=== PATIENT | female | born 1970 | race Caucasian/White ===

== ENCOUNTER 2019-10-30 09:54 | Emergency (ER) | payer SELFPAY ==
[2019-10-30 10:05] VITALS: BP 107/87; PULSE 91; RESP 18; TEMP 36.7; O2SAT 97; BMI 22.1
--- NOTE | 2019-10-30 10:11 | W.ED.ABDPA2 ---
HPI - Abdominal Pain General: Chief Complaint: Abdominal Pain Stated Complaint: ABD PAIN Time Seen by Provider: 10/30/19 10:10 Source: patient Mode of arrival: ambulatory Limitations: no limitations History of Present Illness: HPI narrative: Patient is a very nice 49-year-old female who presents to ED today with complaints of upper abdominal pain. Patient states pain is been present over the past 5 to 6 days. Patient states she was seen at [facility] ED recently and diagnosed with probable pancreatitis . She states at the time they wanted to perform a CT scan but patient refused. Patient was seen by her PCP yesterday who recommended she come to our ED for evaluation however she thought she could continue to monitor the pain at home. Patient reports daily alcohol use (approximately 8 beers a day). Denies drug use. She has not had any vomiting or changes in bowel movements. No urinary symptoms. No fevers. MD elicited complaint: abdominal pain Onset (ago): day(s) Pain Consistency: constant Location: LUQ and RUQ Severity: moderate Quality: sharp Radiation: none Migration to: no migration Associated Symptoms: Denies change in stool character, chills, coffee ground emesis, constipation, diarrhea, dysuria, fever(s), hematochezia, hematemesis, melena, nausea, syncope and vomiting Review of Systems Const: Denies: fever(s), chills, fatigue or malaise Card: Denies: chest pain, palpitations, irregular heart rhythm, edema, lightheadedness, syncope, pre-syncope or orthopnea Resp: Denies: dyspnea (chronic/COPD; no worsening) GI: Reports: abdominal pain; Denies: nausea, vomiting, hematemesis, coffee ground emesis, diarrhea, constipation, rectal swelling, change in stool character, hematochezia, melena, white/light colored stool or steatorrhea : Denies: flank pain, difficulty voiding, dysuria, urinary frequency or urinary urgency Musc: Denies: neck pain or back pain Skin/Breast: Denies: rash Neuro: Denies: headache(s), numbness in extremities, weakness in extremities or sensory changes PFS ED PFSH: Medical History (Updated 10/30/19 @ 12:20 by VICK Celis) Abdominal pain Alcohol abuse, daily use Social History (Updated 10/29/19 @ 16:02 by Dariana Cui CMA) Smoking and tobacco status: current every day smoker cigarettes Packs smoked per day: 1.5 Alcohol intake: current Alcohol intake frequency: few times a month History of recent travel: No Physical Exam Const: COMMON NORMALS: no acute distress, average body habitus, patient oriented x3, no limitations, healthy appearing, alert and well nourished Chest: COMMONS NORMALS: normal inspection of the chest and normal palpation of entire chest wall Resp: COMMON NORMALS: normal respiratory effort and clear to auscultation bilaterally AUSCULTATION: clear to auscultation bilaterally Cardio: COMMON NORMALS: regular rate and regular rhythm RATE: regular rate RHYTHM: regular rhythm GI: COMMON NORMALS: Normal to inspection, nondistended, normoactive bowel sounds present, Soft to palpation, No hepatosplenomegaly present and no masses PALPATION: Yes Soft to palpation, Yes Tenderness to palpation present (GI) Details: RUQ and Yes No hepatosplenomegaly present : COMMON NORMALS: Yes no CVA tenderness BLADDER/KIDNEY EXAM: Yes no CVA tenderness Back/Pelvis: COMMON NORMALS: no CVA tenderness Extremity: COMMON NORMALS: normal to inspection GENERAL: Yes normal exam except as noted Neuro: COMMON NORMALS: patient oriented x3 SENSORIUM/ORIENTATION: Yes alert Skin: COMMON NORMALS: no rashes or lesions noted GENERAL SKIN EXAM: no rashes or lesions noted Course Vital Signs: Vital signs: Vital Signs Temperature 98.0 F 10/30/19 10:05 Pulse Rate 84 10/30/19 12:47 Respiratory Rate 16 10/30/19 12:47 Blood Pressure 144/85 10/30/19 12:47 Pulse Oximetry 93 10/30/19 12:47 MDM - Abdominal Pain MDM Narrative: Medical decision making narrative: Patient's vitals are completely stable. On her labs her LFTs and lipase are normal. Her CT scan shows a fatty liver. Gallbladder ultrasound shows cholesterol polyps or sludge balls. She has no gallbladder wall thickening, andrei-cholecystic fluid, or gallbladder wall thickening to suggest cholecystitis. Patient will follow-up with general surgery for further evaluation and possible elective cholecystectomy. Return to ED precautions given. She feels better in our ED with pain and nausea medications. Lab Data: Labs: Lab Results 10/30/19 10/30/19 10/30/19 Range/Units 10:31 10:31 10:31 WBC 5.8 (4.0-10.0) 10^3/ uL RBC 5.52 H (4.1-5.3) 10^6/u L Hgb 17.2 H (11.5-15.3) g/dL Hct 52.2 H (37.0-47.0) % MCV 94.6 (81-99) fL MCH 31.2 (28.0-34.0) pg MCHC 33.0 (30.0-36.0) g/dL RDW 12.6 (12.1-15.1) % Plt Count 208 (130-400) 10^3/c mm MPV 11.2 H (7.4-10.4) fL Neut % (Auto) 62.5 % Lymph % (Auto) 27.8 % Dyer % (Auto) 8.3 % Eos % (Auto) 0.9 % Baso % (Auto) 0.3 % Neut # (Auto) 3.6 (1.8-7.7) 10^3/u L Lymph # (Auto) 1.6 (0.8-4.8) 10^3/u L Dyer # (Auto) 0.5 (0.2-0.9) 10^3/u L Eos # (Auto) 0.1 (0.0-0.8) 10^3/u L Baso # (Auto) 0.0 (0.0-0.1) 10^3/u L Nucleated RBC % (a uto) 0 % Nucleated RBCs # 0.0 /100WBC Sodium 140 (136-145) mmol/L Potassium 4.1 (3.5-5.1) mmol/L Chloride 103 (98-107) mmol/L Carbon Dioxide 26 (22-29) mmol/L Anion Gap 15.1 (5-19) BUN 8 (6-20) mg/dL Creatinine 0.6 (0.5-0.9) mg/dL GFR Calculation 105.4 (90-130) mL/min Glucose 91 (65-115) mg/dL Calculated Osmolal ity 285 (285-295) mOsm/k g Calcium 9.5 (8.5-10.5) mg/dL Total Bilirubin 0.3 (0.15-1.2) mg/dL AST 29 (0-32) U/L ALT 42 H (0-33) U/L Alkaline Phosphata se 82 (35-105) IU/L Total Protein 7.1 (6.6-8.7) g/dL Albumin 4.7 (3.5-5.2) g/dL Globulin 2.4 (1.3-4.6) g/dL Lipase 46 (13-60) U/L HCG, Qual Negative (Negative) Urine Color (Yellow) Urine Appearance (CLEAR) Urine pH (5-7) Ur Specific Gravit y (1.005-1.030) Urine Protein (Negative) Urine Glucose (UA) (Normal) Urine Ketones (Negative) Urine Blood (Negative) Urine Nitrate (Negative) Urine Bilirubin (NEGATIVE) Urine Urobilinogen (Negative) mg/dL Ur Leukocyte Brittany ase (Negative) 10/30/19 Range/Units 10:40 WBC (4.0-10.0) 10^3/ uL RBC (4.1-5.3) 10^6/u L Hgb (11.5-15.3) g/dL Hct (37.0-47.0) % MCV (81-99) fL MCH (28.0-34.0) pg MCHC (30.0-36.0) g/dL RDW (12.1-15.1) % Plt Count (130-400) 10^3/c mm MPV (7.4-10.4) fL Neut % (Auto) % Lymph % (Auto) % Dyer % (Auto) % Eos % (Auto) % Baso % (Auto) % Neut # (Auto) (1.8-7.7) 10^3/u L Lymph # (Auto) (0.8-4.8) 10^3/u L Dyer # (Auto) (0.2-0.9) 10^3/u L Eos # (Auto) (0.0-0.8) 10^3/u L Baso # (Auto) (0.0-0.1) 10^3/u L Nucleated RBC % (a uto) % Nucleated RBCs # /100WBC Sodium (136-145) mmol/L Potassium (3.5-5.1) mmol/L Chloride (98-107) mmol/L Carbon Dioxide (22-29) mmol/L Anion Gap (5-19) BUN (6-20) mg/dL Creatinine (0.5-0.9) mg/dL GFR Calculation (90-130) mL/min Glucose (65-115) mg/dL Calculated Osmolal ity (285-295) mOsm/k g Calcium (8.5-10.5) mg/dL Total Bilirubin (0.15-1.2) mg/dL AST (0-32) U/L ALT (0-33) U/L Alkaline Phosphata se (35-105) IU/L Total Protein (6.6-8.7) g/dL Albumin (3.5-5.2) g/dL Globulin (1.3-4.6) g/dL Lipase (13-60) U/L HCG, Qual (Negative) Urine Color Straw (Yellow) Urine Appearance Clear (CLEAR) Urine pH 7.0 (5-7) Ur Specific Gravit y 1.000 L (1.005-1.030) Urine Protein Neg (Negative) Urine Glucose (UA) Norm (Normal) Urine Ketones Negative (Negative) Urine Blood Neg (Negative) Urine Nitrate Negative (Negative) Urine Bilirubin Neg (NEGATIVE) Urine Urobilinogen Norm (Negative) mg/dL Ur Leukocyte Brittany ase Negative (Negative) Imaging Data ^: CT Abd/Pel: Radiologist's impression: [place] [address] CT Scan Report Signed Patient: Monica Shook Unit #: [id number] : 1970 Age/Sex: 49 / F ADM Date: 10/30/19 Loc: ER Room/Bed: Attending Dr: Ordering Provider/Ordering MD: Annamaria Patino Date of Service: 10/30/19 Procedure(s): CT abdomen pelvis w con* [id number] Accession Number(s): [id number] Report Number: [id number] WS: [id number] CT ABDOMEN PELVIS TECHNIQUE: Contrast-enhanced CT of the abdomen and pelvis with coronal and sagittal reformatted images. CLINICAL INFORMATION: upper abdominal pain COMPARISON: None. DLP: 484.[address] scans at [facility] use at least one of these dose optimization techniques: automated exposure control; mA and/or kV adjustment per patient size (includes targeted exams where dose is matched to clinical indication); or iterative reconstruction. FINDINGS: Mild diffuse fatty infiltration of the liver. Mild gallbladder wall enhancement with gallbladder polyps or cholesterolosis. See ultrasound. Normal portal vein and splenic vein. Normal spleen. Adrenal glands are normal. Normal renal parenchymal enhancement. No hydronephrosis. Normal GE junction. Normal caliber abdominal aorta. Aortic calcification. Sigmoid diverticulosis. No evidence of acute diverticulitis. No evidence of small or large bowel obstruction. No free fluid in the pelvis. Pelvic phleboliths. Pancreas appears normal. Lung bases are well aerated. CT/CT abdomen pelvis w con* [id number] IMPRESSION: 1. Mild diffuse fatty infiltration of the liver. 2. Mild gallbladder wall enhancement with suspected small gallbladder polyps/cholesterolosis. See ultrasound. 3. Normal renal parenchymal enhancement. No hydronephrosis. 4. Aortic calcification. No aneurysm. 5. Sigmoid diverticulosis. No evidence of acute diverticulitis. Dictated By: Efrem Andrade MD Signed By: Efrem Andrade MD Signed Date/Time: 10/30/19 1145 DD/ 1136 US gallbladder : Radiologist's impression: [address] [place] [address] Ultrasound Report Signed Patient: Monica Shook Unit #: [id number] : 1970 Age/Sex: 49 / F ADM Date: 10/30/19 Loc: ER Room/Bed: Attending Dr: Ordering Provider/Ordering MD: Annamaria Patino Date of Service: 10/30/19 Procedure(s): US gall bladder [id number] Accession Number(s): [id number] Report Number: [id number] WS: [id number] ULTRASOUND ABDOMEN LIMITED CLINICAL INFORMATION: RUQ pain COMPARISON: None. FINDINGS: Liver Size: Normal. Craniocaudal length: 13.4 cm. Echogenicity: Normal. Surface nodularity: None. Mass (size and location): None. Bile ducts Intrahepatic ducts: Normal. Common bile duct diameter: 0.3 cm. Gallbladder Nonshadowing small gallbladder wall polyps or sludge balls. Small amount of dependent sludge.. No shadowing calculi. No gallbladder wall thickening. Normal gallbladder wall 3 mm Pancreas Normal as visualized. Right kidney: Normal. Hydronephrosis: None. Size: 9.4 cm x 5.9 cm x 3.9 cm. Abdominal aorta and IVC Visualized portions are normal. Ascites: None. US/US gall bladder [id number] IMPRESSION: 1. Nonshadowing cholesterol polyps or sludge balls. No gallbladder wall thickening or pericholecystic fluid. No shadowing calculi. 2. Normal common bile duct. 3. Normal liver. 4. No hydronephrosis in right kidney. Dictated By: Efrem Andrade MD Signed By: Efrem Andrade MD Signed Date/Time: 10/30/19 1159 DD/ 1156 Discharge Plan Discharge Patient Disposition: Home, Self-Care Clinical Impression: Biliary colic Condition: Stable Prescriptions: New hydrocodone-acetaminophen 5-325 mg tablet 1 tab PO Q6H PRN (Reason: pain) Qty: 20 RF: 0 Zofran 4 mg tablet 4 mg PO Q6H PRN (Reason: nausea and vomiting) Qty: 14 RF: 0 Discharge Orders: Discharge Order (Routine); Ordered 10/30/19 Ordered By: Annamaria Patino Referrals: Messi Patel FNP [Primary Care Provider] - Patient Instructions: Abdominal Pain (ED) Activity Restrictions/Additional Instructions: As discussed case management should contact you to set you up with a general surgery consult. Please return to the emergency department for worsening pain, continued episodes of vomiting, fevers greater than 100.4, or any other concerns you may have. Discharge Date/Time: 10/30/19 12:49 Coding Level of Care Code ED Veterinary Poultry Inspector for Hugo Segal
--- NOTE | 2019-10-30 10:21 | CT_ITS ---
WS: [id number] CT ABDOMEN PELVIS TECHNIQUE: Contrast-enhanced CT of the abdomen and pelvis with coronal and sagittal reformatted image s. CLINICAL INFORMATION: upper abdominal pain COMPARISON: None. DLP: 484.[address] scans at [facility] use at least one of these dose optimization techniques: automat ed exposure control; mA and/or kV adjustment per patient size (includes targeted exams where dose is matched to clinical indication); or iterative reconstruction. FINDINGS: Mild diffuse fatty infiltration of the liver. Mild gallbladder wall enhancement with gallbladder poly ps or cholesterolosis. See ultrasound. Normal portal vein and splenic vein. Normal spleen. Adrenal glands are normal. Normal renal parenchym al enhancement. No hydronephrosis. Normal GE junction. Normal caliber abdominal aorta. Aortic calcifi cation. Sigmoid diverticulosis. No evidence of acute diverticulitis. No evidence of small or large bowel obst ruction. No free fluid in the pelvis. Pelvic phleboliths. Pancreas appears normal. Lung bases are well aerated. CT/CT abdomen pelvis w con* [id number] IMPRESSION: 1. Mild diffuse fatty infiltration of the liver. 2. Mild gallbladder wall enhancement with suspected small gallbladder polyps/c holesterolosis. See ultrasound. 3. Normal renal parenchymal enhancement. No hydronephrosis. 4. Aortic calcification. No aneurysm. 5. Sigmoid diverticulosis. No evidence of acute diverticulitis.
--- NOTE | 2019-10-30 10:21 | US_ITS ---
WS: [id number] ULTRASOUND ABDOMEN LIMITED CLINICAL INFORMATION: RUQ pain COMPARISON: None. FINDINGS: Liver Size: Normal. Craniocaudal length: 13.4 cm. Echogenicity: Normal. Surface nodularity: None. Mass (size and location): None. Bile ducts Intrahepatic ducts: Normal. Common bile duct diameter: 0.3 cm. Gallbladder Nonshadowing small gallbladder wall polyps or sludge balls. Small amount of dependent sludge.. No sha dowing calculi. No gallbladder wall thickening. Normal gallbladder wall 3 mm Pancreas Normal as visualized. Right kidney: Normal. Hydronephrosis: None. Size: 9.4 cm x 5.9 cm x 3.9 cm. Abdominal aorta and IVC Visualized portions are normal. Ascites: None. US/US gall bladder [id number] IMPRESSION: 1. Nonshadowing cholesterol polyps or sludge balls. No gallbladder wall thicke glen or pericholecystic fluid. No shadowing calculi. 2. Normal common bile duct. 3. Normal liver. 4. No hydronephrosis in right kidney.
[2019-10-30 10:47] LABS: Basophils % 0.3 %; Eosinophils # 0.1 10^3/uL (0.0-0.8); Eosinophils % 0.9 %; Hematocrit 52.2 % (37.0-47.0); Hemoglobin 17.2 g/dL (11.5-15.3); Lymphocytes # 1.6 10^3/uL (0.8-4.8); Lymphocytes % 27.8 %; Mean Corpuscular Hemoglobin 31.2 pg (28.0-34.0); Mean Corpuscular Volume 94.6 fL (81-99); Mean Platelet Volume 11.2 fL (7.4-10.4); Monocytes # 0.5 10^3/uL (0.2-0.9); Monocytes % 8.3 %; Neutrophils # 3.6 10^3/uL (1.8-7.7); Neutrophils % 62.5 %; Nucleated Red Blood Cells % 0 %; Platelet Count 208 10^3/cmm (130-400); Red Blood Count 5.52 10^6/uL (4.1-5.3); Red Cell Distribution Width 12.6 % (12.1-15.1); White Blood Count 5.8 10^3/uL (4.0-10.0)
[2019-10-30] MEDS: ondansetron 2 mg/ML SDV 2 mL 4 MG IVP (10:48)
[2019-10-30] MEDS: morphine 4 mg/mL SDV 1 mL IVP (10:48)
[2019-10-30 10:55] LABS: HCG, Serum Qual Negative (Negative)
[2019-10-30 11:00] VITALS: O2SAT 98
[2019-10-30 11:01] LABS: Alanine Aminotransferase 42 U/L (0-33); Albumin Level 4.7 g/dL (3.5-5.2); Alkaline Phosphatase 82 IU/L (35-105); Anion Gap 15.1 (5-19); Aspartate Amino Transferase 29 U/L (0-32); Blood Urea Nitrogen 8 mg/dL (6-20); Calcium 9.5 mg/dL (8.5-10.5); Carbon Dioxide 26 mmol/L (22-29); Chloride 103 mmol/L (98-107); Globulin 2.4 g/dL (1.3-4.6); Glomerular Filtration Rate 105.4 mL/min (90-130); Glucose 91 mg/dL (65-115); Lipase 46 U/L (13-60); Osmolality Calculated 285 mOsm/kg (285-295); Potassium 4.1 mmol/L (3.5-5.1); Sodium 140 mmol/L (136-145); Total Bilirubin 0.3 mg/dL (0.15-1.2); Total Protein 7.1 g/dL (6.6-8.7)
[2019-10-30] MEDS: iohexol 300 mg/mL 100 mL Btl IV (11:28)
[2019-10-30 11:33] LABS: Add Urine Microscopic? NO
[2019-10-30 11:38] LABS: Bilirubin Urine Neg (NEGATIVE); Blood Urine Neg (Negative); Glucose Urine UA Norm (Normal); Ketones Urine Negative (Negative); Leukocyte Esterase Urine Negative (Negative); Nitrate Urine Negative (Negative); Protein Urine Neg (Negative); Urine Appearance Clear (CLEAR); Urine Color Straw (Yellow); Urobilinogen Urine Norm (Negative)
[2019-10-30 12:14] VITALS: BP 149/83; PULSE 91; O2SAT 97
[2019-10-30 12:47] VITALS: BP 144/85; PULSE 84; RESP 16; O2SAT 93
--- NOTE | 2019-10-30 14:27 | DCPLANNER ---
gaming manager was asked to schedule a follow up appointment for patient with general surgery. gaming manager called [facility], spoke with Etelvina. gaming manager gave clinic patients information, was told that it would be printed and reviewed. Clinic will call patient with appointment information.
--- NOTE | 2019-11-05 14:00 | DCPLANNER ---
Patient has a follow up appointment scheduled for Saturday, November 09, [address] at 9:[address] Turner. Clinic will call patient with appointment information.
--- NOTE | 2019-11-17 10:02 | DCPLANNER ---
Patient did attend appointment scheduled for 11.09.19 with [facility].
== END 2019-10-30 12:49 | disposition home or self-care (01) ==
PROVIDERS: Emergency Provider Physician Assistant; PCP Nurse Practitioner Family
DX: K80.50 Calculus of bile duct without cholangitis or cholecystitis without obstruction (principal); F17.210 Nicotine dependence, cigarettes, uncomplicated
CPT/HCPCS: 12345; 36415; 74177; 76705; 80053; 81003; 83690; 84703; 85025; 96374; 96375; 99283; A9270; J2270; J2405; Q9967

== ENCOUNTER 2019-11-17 05:48 | Emergency (ER) | payer SELFPAY ==
[2019-11-17 05:54] VITALS: BP 143/73; RESP 18; TEMP 36.3; O2SAT 98; BMI 22.1
--- NOTE | 2019-11-17 06:00 | XR_ITS ---
WS: [id number] ABDOMEN 1 VIEW(S) HISTORY: abd constipation COMPARISON: None available. Mild increased fecal material throughout the colon. No obstruction. No suspicious calcifications or masses. No bone abnormality. XR/XR KUB [id number] IMPRESSION: Mild constipation.
--- NOTE | 2019-11-17 06:08 | ED_ITS ---
HPI - General Adult General: Chief complaint: General Medical Stated complaint: constipated/physician referral Time Seen by Provider: 11/17/19 06:00 History of Present Illness: HPI narrative: 49 yo female presents emergency room with constipation for last 2 days. She has colon polyps she was actually scheduled have a cholecystectomy this morning but because of abdominal cramping and pain in her constipation it was put off she did take some Ex-Lax yesterday but really did not have much of a result. She has been taking hydrocodone as needed for pain which seemed to precipitate it. She is not had any GI bleeding that she is noted. She denies any fever or upper respiratory illness no symptoms. She is not been exposed anyone is been ill recently. Associated symptoms: Reports nausea; Deny chest pain, dyspnea, malaise, rash or vomiting Review of Systems Const: Denies: fever(s), chills, body aches, change in appetite, fatigue or malaise ENMT: Denies: throat pain, ear or mastoid pain, nasal discharge or nasal congestion Card: Denies: chest pain, edema, dyspnea on exertion or orthopnea Resp: Denies: dyspnea, productive cough or non-productive cough GI: Reports: abdominal pain, nausea, constipation and bloating; Denies: vomiting, hematemesis, coffee ground emesis, diarrhea, hematochezia or melena : Denies: flank pain, difficulty voiding, dysuria, urinary frequency or urinary urgency Skin/Breast: Denies: rash or pruritus [facility] ED PFSH: Medical History Abdominal pain Alcohol abuse, daily use Pancreatitis Surgical History History of tubal ligation Family History Denies family history of Anesthesia complication Bleeding disorder Social History Smoking and tobacco status: current every day smoker cigarettes Packs smoked per day: 1.5 Alcohol intake: current Alcohol intake frequency: few times a month History of recent travel: No Physical Exam Const: COMMON NORMALS: no acute distress GENERAL APPEARANCE: cooperative and comfortable ORIENTATION/CONSCIOUSNESS: Yes awake, Yes oriented to person, Yes oriented to place and Yes oriented to time HENMT: COMMON NORMALS: normocephalic, atraumatic, hearing grossly normal bilaterally, external ears normal, EAC's normal, TM's normal bilaterally, Normal nasal mucous membranes and turbinates present, moist oral mucous membranes and oropharynx normal HEAD & SCALP: normocephalic and atraumatic NOSE: Normal nasal mucous membranes and turbinates present EXTERNAL EAR: Yes external ears normal EXTERNAL AUDITORY CANAL: EAC's normal TYMPANIC MEMBRANE: TM's normal bilaterally Eye: COMMON NORMALS: Equal, round and reactive pupils present, EOMs intact bilaterally, conjunctivae normal and no scleral icterus CONJUNCTIVA: Yes conjunctivae normal PUPIL: Yes Equal, round and reactive pupils present Neck/C-Spine: COMMON NORMALS: full ROM, no lymphadenopathy, supple and no JVD Lymph: LYMPHATIC: no lymphadenopathy noted and no lymphedema noted Resp: COMMON NORMALS: normal respiratory effort, No retractions, No use of accessory muscles and clear to auscultation bilaterally AUSCULTATION: clear to auscultation bilaterally Cardio: COMMON NORMALS: no JVD, regular rate, regular rhythm and No murmurs present (Cardio) RATE: regular rate RHYTHM: regular rhythm GI: COMMON NORMALS: Soft to palpation and No hepatosplenomegaly present AUSCULTATION: Yes normoactive bowel sounds PALPATION: Yes Soft to palpation, Yes Tenderness to palpation present (GI) Details: RUQ, No Guarding due to palpation present (GI) and Yes No hepatosplenomegaly present Extremity: COMMON NORMALS: normal to inspection, capillary refill normal, no clubbing, cyanosis or edema, no calf tenderness and no pedal edema Neuro: SENSORIUM/ORIENTATION: Yes oriented to person, Yes oriented to place and Yes oriented to time Skin: COMMON NORMALS: no rashes or lesions noted GENERAL SKIN EXAM: no rashes or lesions noted Course Vital Signs: Vital signs: Vital Signs Temperature 97.3 F L 11/17/19 05:54 Pulse Rate 88 11/17/19 08:43 Respiratory Rate 16 11/17/19 08:43 Blood Pressure 110/68 11/17/19 08:43 Pulse Oximetry 94 11/17/19 08:43 MDM - General Adult MDM Narrative: Medical decision making narrative: Good result from enema. Patient feels much better working to go ahead and discharge her home with Dr. Dr. Uribe she is to call his office and they will make arrangements hopefully to have her cholecystectomy rescheduled for tomorrow. Continue her other medications for now recommend that she stay on a clear liquid diet and n.p.o. after midnight. Lab Data: Labs: Lab Results 11/17/19 11/17/19 11/17/19 Range/Units 06:09 06:09 06:09 WBC 7.4 (4.0-10.0) 10^3/ uL RBC 5.55 H (4.1-5.3) 10^6/u L Hgb 17.1 H (11.5-15.3) g/dL Hct 51.3 H (37.0-47.0) % MCV 92.4 (81-99) fL MCH 30.8 (28.0-34.0) pg MCHC 33.3 (30.0-36.0) g/dL RDW 11.9 L (12.1-15.1) % Plt Count 231 (130-400) 10^3/c mm MPV 11.6 H (7.4-10.4) fL Neut % (Auto) 72.2 % Lymph % (Auto) 20.2 % Morrow % (Auto) 6.4 % Eos % (Auto) 0.7 % Baso % (Auto) 0.4 % Neut # (Auto) 5.3 (1.8-7.7) 10^3/u L Lymph # (Auto) 1.5 (0.8-4.8) 10^3/u L Morrow # (Auto) 0.5 (0.2-0.9) 10^3/u L Eos # (Auto) 0.1 (0.0-0.8) 10^3/u L Baso # (Auto) 0.0 (0.0-0.1) 10^3/u L Nucleated RBC % (a uto) 0 % Nucleated RBCs # 0.0 /100WBC Sodium 138 (136-145) mmol/L Potassium 4.0 (3.5-5.1) mmol/L Chloride 100 (98-107) mmol/L Carbon Dioxide 26 (22-29) mmol/L Anion Gap 16.0 (5-19) BUN 10 (6-20) mg/dL Creatinine 0.6 (0.5-0.9) mg/dL GFR Calculation 105.4 (90-130) mL/min Glucose 98 (65-115) mg/dL Calculated Osmolal ity 282 L (285-295) mOsm/k g Lactate 0.8 (0.5-2.2) mmol/L Calcium 10.5 (8.5-10.5) mg/dL Total Bilirubin 0.3 (0.15-1.2) mg/dL AST 18 (0-32) U/L ALT 18 (0-33) U/L Alkaline Phosphata se 83 (35-105) IU/L Total Protein 7.8 (6.6-8.7) g/dL Albumin 4.3 (3.5-5.2) g/dL Globulin 3.5 (1.3-4.6) g/dL Lipase 49 (13-60) U/L Urine Color (Yellow) Urine Appearance (CLEAR) Urine pH (5-7) Ur Specific Gravit y (1.005-1.030) Urine Protein (Negative) Urine Glucose (UA) (Normal) Urine Ketones (Negative) Urine Blood (Negative) Urine Nitrate (Negative) Urine Bilirubin (NEGATIVE) Urine Urobilinogen (Negative) mg/dL Ur Leukocyte Brittany ase (Negative) 11/17/19 Range/Units 07:08 WBC (4.0-10.0) 10^3/ uL RBC (4.1-5.3) 10^6/u L Hgb (11.5-15.3) g/dL Hct (37.0-47.0) % MCV (81-99) fL MCH (28.0-34.0) pg MCHC (30.0-36.0) g/dL RDW (12.1-15.1) % Plt Count (130-400) 10^3/c mm MPV (7.4-10.4) fL Neut % (Auto) % Lymph % (Auto) % Morrow % (Auto) % Eos % (Auto) % Baso % (Auto) % Neut # (Auto) (1.8-7.7) 10^3/u L Lymph # (Auto) (0.8-4.8) 10^3/u L Morrow # (Auto) (0.2-0.9) 10^3/u L Eos # (Auto) (0.0-0.8) 10^3/u L Baso # (Auto) (0.0-0.1) 10^3/u L Nucleated RBC % (a uto) % Nucleated RBCs # /100WBC Sodium (136-145) mmol/L Potassium (3.5-5.1) mmol/L Chloride (98-107) mmol/L Carbon Dioxide (22-29) mmol/L Anion Gap (5-19) BUN (6-20) mg/dL Creatinine (0.5-0.9) mg/dL GFR Calculation (90-130) mL/min Glucose (65-115) mg/dL Calculated Osmolal ity (285-295) mOsm/k g Lactate (0.5-2.2) mmol/L Calcium (8.5-10.5) mg/dL Total Bilirubin (0.15-1.2) mg/dL AST (0-32) U/L ALT (0-33) U/L Alkaline Phosphata se (35-105) IU/L Total Protein (6.6-8.7) g/dL Albumin (3.5-5.2) g/dL Globulin (1.3-4.6) g/dL Lipase (13-60) U/L Urine Color Yellow (Yellow) Urine Appearance Clear (CLEAR) Urine pH 7.0 (5-7) Ur Specific Gravit y 1.005 (1.005-1.030) Urine Protein Neg (Negative) Urine Glucose (UA) Norm (Normal) Urine Ketones Negative (Negative) Urine Blood Neg (Negative) Urine Nitrate Negative (Negative) Urine Bilirubin Neg (NEGATIVE) Urine Urobilinogen Norm (Negative) mg/dL Ur Leukocyte Brittany ase Negative (Negative) Discharge Plan Discharge Patient Disposition: Home, Self-Care Clinical Impression: Cholecystitis, Constipation Condition: Stable Prescriptions: No Action ondansetron HCl [Zofran] 4 mg tablet 4 mg PO Q6H PRN (Reason: nausea and vomiting) Qty: 14 RF: 0 dimenhydrinate [Dramamine] 50 mg Tablet 50 mg PO BID RF: 0 Discharge Orders: Discharge Order (Routine); Ordered 11/17/19 Ordered By: Asher Nair Referrals: Amanda,Messi, [employer] OPERATOR [Primary Care Provider] - Discharge Diet: Clear Liquid Discharge Activity: Increase activity as tolerated Activity Restrictions/Additional Instructions: Call Dr. Uribe office to reschedule your cholecystectomy tomorrow. I have notified them to your discharge. Clear liquid diet overnight. N.p.o. after midnight. If you have worsening problems return to the emergency room Discharge Date/Time: 11/17/19 08:44 Coding Level of Care Code ED Jinrikisha Driver for Hugo Fwd Exam Comprehensive
[2019-11-17 06:19] LABS: Basophils % 0.4 %; Eosinophils # 0.1 10^3/uL (0.0-0.8); Eosinophils % 0.7 %; Hematocrit 51.3 % (37.0-47.0); Hemoglobin 17.1 g/dL (11.5-15.3); Lymphocytes # 1.5 10^3/uL (0.8-4.8); Lymphocytes % 20.2 %; Mean Corpuscular HGB Conc 33.3 g/dL (30.0-36.0); Mean Corpuscular Hemoglobin 30.8 pg (28.0-34.0); Mean Corpuscular Volume 92.4 fL (81-99); Mean Platelet Volume 11.6 fL (7.4-10.4); Monocytes # 0.5 10^3/uL (0.2-0.9); Monocytes % 6.4 %; Neutrophils # 5.3 10^3/uL (1.8-7.7); Neutrophils % 72.2 %; Nucleated Red Blood Cells % 0 %; Platelet Count 231 10^3/cmm (130-400); Red Blood Count 5.55 10^6/uL (4.1-5.3); Red Cell Distribution Width 11.9 % (12.1-15.1); White Blood Count 7.4 10^3/uL (4.0-10.0)
[2019-11-17 06:32] LABS: Lactate (Lactic Acid level) 0.8 mmol/L (0.5-2.2)
[2019-11-17 06:33] LABS: Alanine Aminotransferase 18 U/L (0-33); Albumin Level 4.3 g/dL (3.5-5.2); Alkaline Phosphatase 83 IU/L (35-105); Aspartate Amino Transferase 18 U/L (0-32); Blood Urea Nitrogen 10 mg/dL (6-20); Calcium 10.5 mg/dL (8.5-10.5); Carbon Dioxide 26 mmol/L (22-29); Chloride 100 mmol/L (98-107); Globulin 3.5 g/dL (1.3-4.6); Glomerular Filtration Rate 105.4 mL/min (90-130); Glucose 98 mg/dL (65-115); Lipase 49 U/L (13-60); Osmolality Calculated 282 mOsm/kg (285-295); Sodium 138 mmol/L (136-145); Total Bilirubin 0.3 mg/dL (0.15-1.2); Total Protein 7.8 g/dL (6.6-8.7)
[2019-11-17] MEDS: ondansetron 2 mg/ML SDV 2 mL 4 MG IVP (06:35)
[2019-11-17] MEDS: morphine 4 mg/mL SDV 1 mL 6 MG IVP (06:35)
[2019-11-17] MEDS: sodium chloride 0.9% 1,000 ML 999 ML IV (06:36)
[2019-11-17 07:00] VITALS: RESP 17; O2SAT 96
[2019-11-17 07:42] LABS: Add Urine Microscopic? NO
[2019-11-17 07:44] LABS: Bilirubin Urine Neg (NEGATIVE); Blood Urine Neg (Negative); Glucose Urine UA Norm (Normal); Ketones Urine Negative (Negative); Leukocyte Esterase Urine Negative (Negative); Nitrate Urine Negative (Negative); Protein Urine Neg (Negative); Specific Gravity, Urine 1.005 (1.005-1.030); Urine Appearance Clear (CLEAR); Urine Color Yellow (Yellow); Urobilinogen Urine Norm (Negative)
[2019-11-17 08:06] VITALS: BP 115/63; PULSE 77; RESP 17; O2SAT 96
--- NOTE | 2019-11-17 08:18 | PC.NURSE ---
After pt had milk and molasses enema, pt had a large BM.
[2019-11-17 08:43] VITALS: BP 110/68; PULSE 88; RESP 16; O2SAT 94
== END 2019-11-17 08:44 | disposition home or self-care (01) ==
PROVIDERS: Emergency Provider Family Medicine; PCP Nurse Practitioner Family
DX: K59.00 Constipation, unspecified (principal); K81.9 Cholecystitis, unspecified; F17.210 Nicotine dependence, cigarettes, uncomplicated
CPT/HCPCS: 12345; 45915; 74018; 80053; 81003; 83605; 83690; 85025; 96360; 96361; 96374; 96375; 99283; J2270; J2405; J7030

== ENCOUNTER 2019-11-18 08:45 | Day surgery (SDC) | payer SELFPAY ==
[2019-11-17 13:18] VITALS: BMI 22.1
[2019-11-18] VITALS (11 sets, daily range): BP systolic 111–144; BP diastolic 56–89; PULSE 63–85; RESP 14–20; TEMP 36.3–36.7; O2SAT 96–99
[2019-11-18] MEDS: sodium chloride 0.9% 1,000 ML 30 ML IV (09:45)
--- NOTE | 2019-11-18 09:46 | ANES.PREANE2 ---
Pre-Anesthetic Assessment Pre-Anesthetic Assessment: Height/Weight: Height 1.6 m Weight 56.699 kg Preop Diagnosis: Symptomatic cholelithiasis Proposed Procedure: Operation Date: 11/18/19 09:45 Proposed Procedures p Laparoscopic Cholecystectomy 55548 R10.9(Not Applicable) - Cole Uribe MD Familial anesthetic complications: None Was Beta Douglas taken within 24 hours: N/A Last intake: Intake Last Liquid Date 11/17/19 Last Liquid Time 18:00 Last Solid Date 11/17/19 Last Solid Time 17:00 Social: Social History: Alcohol and Tobacco Comment: no drinking in the last month Exam: Pre-Anes Outpt Exam: alert, oriented x 3, clear to auscultation bilaterally and regular rate & rhythm Airway: Cervical ROM: WNL MP: 4 Dentition: False Pulmonary: Pulmonary: COPD CV/HEM: CV/HEM: None reported : : None reported Hepatic: Hepatic: None reported GI: GI: GERD Comments: currently having heartburn - will perform RSI Metabolic: Metabolic: None reported Musc/skel: Musc/skel: None reported Neuropsych: Neuropsych: None reported Anesthetic Plan: ASA status: 2 Anesthesia: General Risk of > 500 ml blood loss (7ml/kg in children): No Meds/Allergies Current Medications: Current Medications Generic Name Dose Route Start Last Admin Trade Name Freq PRN Reason Stop Dose Admin Sodium Chloride 1,000 mls @ 30 ml s/hr 11/18/19 09:30 11/18/19 09:45 Sodium Chloride 0.9% IV 11/19/19 09:29 30 mls/hr .Q24H SINDI Administration PFSH Anesthesia PFSH: Medical History (Updated 11/17/19 @ 08:34 by Asher Nair DO) Abdominal pain Alcohol abuse, daily use Pancreatitis Surgical History History of tubal ligation Family History Denies family history of Anesthesia complication Bleeding disorder Social History Smoking and tobacco status: current every day smoker cigarettes Packs smoked per day: 1.5 Alcohol intake: current Alcohol intake frequency: few times a month History of recent travel: No Data Anesthesia Cardiac Studies: No Data to Display
[2019-11-18] MEDS: midazolam 1 mg/mL INJ 2 mL 2 MG IVP (10:08)
--- NOTE | 2019-11-18 10:15 | SUR.PREOP ---
MEDICATED FOR ANXIETY PER Dr SILVA..O2 SAT95%
--- NOTE | 2019-11-18 10:21 | W.PM.OPSUD ---
Surgery/Procedure H&P Update DATE OF PROCEDURE: November 18, 2019 DATE H&P PERFORMED: 11/09/19 H&P UPDATE INFORMATION: I have reviewed H&P completed within last 30 days, I have examined patient prior to procedure and Changes to prior documentation as noted here CHANGES TO PREVIOUS DOCUMENTATION: Patient was supposed to get her elective laparoscopic cholecystectomy yesterday but she did have episode of constipation to go to the emergency department, responded very well to milk of molasses enema. And the patient was rescheduled for today PREOP DIAGNOSIS: Symptomatic cholelithiasis PRIMARY INDICATION FOR PROCEDURE: The same PLANNED PROCEDURE: Operation Date: 11/18/19 09:45 Proposed Procedures p Laparoscopic Cholecystectomy 37100 R10.9(Not Applicable) - Cole Uribe MD
[2019-11-18] MEDS: lidocaine 2% INJ 20 mL INJECTION (11:43)
--- NOTE | 2019-11-18 12:14 | PM.OP ---
Operative Report Date of procedure: November 18, 2019 Pre-op Diagnosis: Symptomatic cholelithiasis Post-op diagnosis: other (Chronic cholecystitis) Procedure Done: Laparoscopic cholecystectomy Specimens removed/disposition: Gallbladder and contents Surgeon: Cole Uribe Certified Fraud Examiner: Surgical cirilo Bryan Circulating nurses Saige and Diana Anesthesia: General (traffic observer Blaine) Estimated blood loss (mL): 5 Condition: stable Disposition: same day Brief History: This is a pleasant 49 years old female patient referred to my office because of gallbladder disease . plan of care; After thorough history physical examination and reviewing the chart ,I counseled the patient for laparoscopic cholecystectomy possible open, indications risks including but not limited injury to the common bile duct and other viscera.benefits and alternatives all discussed with the patient, and she did agree to proceed. All questions have been answered and all concerns have been addressed to patient's satisfaction. Rationale was carefully and clearly discussed with the patient.Appropriate informed consent have been reviewed and signed. Procedure: Patient was identified in the holding area and taken back to the operative suite, placed in supine position intubated by anesthesia . Time-out was done verifying the patient's name/date of /planned procedure and destination after the procedure, all were in agreement. SCDs confirmed to be functioning, preoperative antibiotics administered per protocol, and beta andrew protocol was confirmed. Patient was appropriately secured to the table, footboard was applied to the OR table, before prep and drape anesthesia was asked to tilt the table back and forth to make sure that the patient is appropriately secured and she was. Prep and drape of the abdomen was done under the usual sterile technique, followed by that infra umbilical skin transverse incision coinciding with previous scar,skin incision was done by a 11 blade knife, and stay sutures were applied to the fascia and León trocar technique was used to enter the abdominal without injuring any abdominal viscera, started by low flow gas insufflation followed by a high flow, started with a 10 mm laparoscope and under direct vision there was no evidence of any injuries, the scope then switched to a 30? ,10 millimeter scope and under direct visualization 5 millimeter trocar was inserted in the epigastric region followed by two 5 mm trocars were inserted in the right upper quadrant that was done after injection of local lidocaine 2% at all incision sites. Gallbladder showed chronic cholecystitis. Patient was noticed to have adhesions towards the right side of her abdomen including bowel loops yet it was away from the León trocar and the designated 5 mm trochars as well, and did not interfere with the field of surgery. Patient was then positioned in the head up and tilted to the left dissection started by taking adhesions down using [place] forceps with heat, continued dissection until I identified the critical view of the cystic duct and cystic artery were seen connected to the gallbladder. Clips were applied on the cystic duct towards the common bile duct 1 towards the gallbladder then divided is in sharp scissors, 2 clips were then applied onto the cystic artery and 1 towards the gallbladder and divided by sharp scissors. Was an additional traversing vessel that was clipped as Dissection was then carried along of the gallbladder from the gallbladder fossa using cautery as well as sharp dissection with heat energy. The gallbladder then was dissected out from the gallbladder fossa totally , cholecystectomy was then achieved and was placed in an Endo Catch bag and then retrieved from the León trocar site under direct visualization using a 5 mm 30? scope through the epigastric trocar, specimen was then passed to the circulating nurse to go for permanent pathology,irrigation and hemostasis was done to the gallbladder fossa after hemostasis was secured, final survey laparoscopy was done that showed no injuries. The infraumbilical fascial defect was then closed using interrupted Vicryl sutures using a fascial closure device ;Jose Luis Junior under direct visualization Gas was allowed to deflate,Trocars were then taken out under direct vision there was no evidence of bleeding Specimen was passed to the circulating nurse for permanent pathology. No drains were placed and the infra umbilical incision as well as all trocar sites were closed by by 4-0 Monocryl to approximate the skin edges of the infra umbilical incision, dressing was applied in the form of surgical glue and the patient patient got extubated and was taken to recovery area in a stable condition. Count of sponges, needles and instruments were completed at the end of the procedure I was present for the whole entire procedure.
--- NOTE | 2019-11-18 12:26 | SUR.OPER ---
bruise noted on below left side of peritoneal area. provider aware.
[2019-11-18] MEDS: fentaNYL 50 mcg/mL INJ 2mL IVP (12:43)
[2019-11-18] MEDS: HYDROcodone-acetaminophen 5-325 mg Tablet 1 TAB PO (13:29)
== END 2019-11-18 13:50 | disposition home or self-care (01) ==
PROVIDERS: PCP Nurse Practitioner Family; Visit Provider Surgery
PROC: 0FT44ZZ Resection of Gallbladder, Percutaneous Endoscopic Approach (ICD-10-PCS; CPT 47562; principal; 2019-11-18 09:45)
DX: K81.1 Chronic cholecystitis (principal); J44.9 Chronic obstructive pulmonary disease, unspecified; K21.9 Gastro-esophageal reflux disease without esophagitis; F17.210 Nicotine dependence, cigarettes, uncomplicated
CPT/HCPCS: 47562; 12345; 88304; 96374; J0131; J0690; J1100; J2001; J2250; J2405; J2704; J2710; J3010; J3490; J7030

== ENCOUNTER 2020-08-30 12:23 | Emergency (ER) | payer SELFPAY ==
[2020-08-30 12:29] VITALS: BP 153/74; PULSE 86; RESP 17; TEMP 36.8; O2SAT 94; BMI 25.3
--- NOTE | 2020-08-30 14:16 | XRR_ITS ---
PROCEDURE INFORMATION: Exam: XR Chest Exam date and time: 08/30/2020 2:17 PM Age: 50 years old Clinical indication: Shortness of breath; Additional info: SOB TECHNIQUE: Imaging protocol: XR of the chest Views: 1 view. COMPARISON: CR Chest 1 [place] [id number] 09/05/2015 8:33 PM FINDINGS: Lungs: Unremarkable. No consolidation. Pleural spaces: Unremarkable. No pleural effusion. No pneumothorax. Heart/Mediastinum: Unremarkable. No cardiomegaly. Bones/joints: Unremarkable. XR/XR chest 1V portable [id number] IMPRESSION: No acute findings.
[2020-08-30 14:33] VITALS: BP 161/93; PULSE 85; RESP 14; O2SAT 96
[2020-08-30 14:40] LABS: Basophils % 0.4 %; Eosinophils # 0.4 10^3/uL (0.0-0.8); Eosinophils % 3.9 %; Hematocrit 48.9 % (37.0-47.0); Lymphocytes # 3.9 10^3/uL (0.8-4.8); Lymphocytes % 40.2 %; Mean Corpuscular HGB Conc 32.7 g/dL (30.0-36.0); Mean Corpuscular Hemoglobin 29.6 pg (28.0-34.0); Mean Corpuscular Volume 90.4 fL (81-99); Monocytes # 0.5 10^3/uL (0.2-0.9); Monocytes % 5.1 %; Neutrophils # 4.83 10^3/uL (1.8-7.7); Neutrophils % 50.1 %; Nucleated Red Blood Cells % 0 %; Platelet Count 263 10^3/cmm (130-400); Red Blood Count 5.41 10^6/uL (4.1-5.3); Red Cell Distribution Width 13.1 % (12.1-15.1); White Blood Count 9.7 10^3/uL (4.0-10.0)
--- NOTE | 2020-08-30 14:49 | W.ED.GENADLT ---
HPI - General Adult General: Chief complaint: General Medical Stated complaint: POSS REACTION FROM VACC Time Seen by Provider: 08/30/20 13:59 Source: patient Mode of arrival: ambulatory Limitations: no limitations History of Present Illness: HPI narrative: 50-year-old female patient presents to the emergency department with multiple complaints. She reports since receiving Covid vaccine July 2020, has continued to experience joint pain that comes and goes. She reports pain to the left hand/thumb, skin tenderness to the chest and abdomen, back. She reports her cannot even touch her because her pain is so bad. She reports pain is sharp, will occur in different joints at different times. She reports will only last a couple seconds and then goes away then will reappear in another joint. She reports this is continued and has not changed since Covid vaccine, her 1st dose. She was prescribed prednisone for 5 days last week, was not effective with pain; she was prescribed naproxen yesterday, did not help. She states has tried [id number] Tylenol without improvement. She states was sent to the emergency department by her primary care for evaluation of inflammatory markers. Onset (ago): month(s) (1-2) Location: chest, back, abdomen, left and upper extremity Radiation: non-radiation Severity: moderate Quality: dull Pain Consistency: intermittent (when touched) Relieving factors: none Exacerbating factors: movement Associated symptoms: Reports dyspnea and short of breath; Deny chest pain, diaphoresis, headache(s), nausea, rash, palpitations or vomiting Treatments prior to arrival: NSAID Review of Systems General: Reports: 10 or more systems reviewed and unremarkable except in HPI and below Const: Denies: fever(s), chills or diaphoresis Eyes: Denies: blurry vision or eye redness ENMT: Denies: throat pain, dental pain or disequilibrium Card: Denies: chest pain, palpitations or irregular heart rhythm Resp: Reports: dyspnea GI: Denies: abdominal pain, nausea or vomiting : Denies: difficulty voiding or dysuria Musc: Reports: back pain (soft tissue) and joint pain (left thumb and left hand); Denies: neck pain Skin/Breast: Reports: skin tenderness ( all over ); Denies: rash, pruritus, erythema, skin swelling, changing lesions or changes in skin color Neuro: Denies: headache(s), weakness in extremities or behavioral changes Psych: Denies: anxiety or depression Christopher/Lymph: Denies: easy bruising PFSH ED PFSH: Medical History Abdominal pain Alcohol abuse, daily use Chronic obstructive pulmonary disease Pancreatitis Surgical History History of tubal ligation Family History Denies family history of Anesthesia complication Bleeding disorder Social History Smoking and tobacco status: current every day smoker cigarettes Packs smoked per day: 1.5 Alcohol intake: current Alcohol intake frequency: few times a month History of recent travel: No Female Reproductive History: Spontaneous abortions: No Physical Exam Const: COMMON NORMALS: no acute distress, patient oriented x3, healthy appearing and alert GENERAL APPEARANCE: cooperative, comfortable and well hydrated HENMT: COMMON NORMALS: normocephalic, Normal external nose present and moist oral mucous membranes HEAD & SCALP: normocephalic NOSE: Normal external nose present Eye: COMMON NORMALS: Equal, round and reactive pupils present and EOMs intact bilaterally GENERAL EYE: appearance normal, both eyes and all related structures PUPIL: Yes Equal, round and reactive pupils present Neck/C-Spine: COMMON NORMALS: full ROM and no lymphadenopathy GENERAL: Yes normal visual inspection and Yes trachea midline CERVICAL SPINE: Yes cervical ROM normal Lymph: LYMPHATIC: no lymphadenopathy noted Chest: COMMONS NORMALS: normal inspection of the chest and normal palpation of entire chest wall Resp: COMMON NORMALS: normal respiratory effort, No retractions, No use of accessory muscles and clear to auscultation bilaterally EFFORT & INSPECTION: Yes able to speak in complete sentences, No labored and No audible wheezes AUSCULTATION: clear to auscultation bilaterally and lung sounds not diminished Cardio: COMMON NORMALS: regular rate, regular rhythm, S1 normal heart sound present, S2 normal heart sound present and Peripheral pulses 2+ throughout RATE: regular rate RHYTHM: regular rhythm HEART SOUNDS: S1 normal heart sound present and S2 normal heart sound present PERIPHERAL PULSES: Peripheral pulses 2+ throughout GI: COMMON NORMALS: Normal to inspection, nondistended, normoactive bowel sounds present and Soft to palpation INSPECTION: Yes normal to inspection, No abdominal wall ecchymosis, No abdominal distension, Yes central obesity and No visible herniation AUSCULTATION: Yes normoactive bowel sounds PALPATION: Yes Soft to palpation and Yes Tenderness to palpation present (GI) (soft tissue tenderness present to the entire chest, abdomen and pelvis) : COMMON NORMALS: Yes no CVA tenderness BLADDER/KIDNEY EXAM: Yes no CVA tenderness Back/Pelvis: COMMON NORMALS: no CVA tenderness THORACIC SPINE/UPPER BACK: Yes thoracic ROM normal and Yes paraspinal muscle tenderness LUMBAR SPINE/LOWER BACK: Yes lumbar ROM normal, Yes paraspinal muscle tenderness, No bend over test abnormal and Yes other soft tissue findings Other lumbar soft tissue findings laterality: bilateral Extremity: COMMON NORMALS: normal to inspection, full ROM, capillary refill normal, no clubbing, cyanosis or edema and no pedal edema GENERAL: Yes normal exam except as noted OTHER: full active ROM present to all extremities, not able to produce tenderness to the digits of the hand, negative deformities or clicking/stiffness, nodules noted Neuro: ADRIANA COMA SCALE: document GCS findings [place] coma scale eye opening: Spontaneous Adriana coma scale verbal response: Orientated Adriana coma scale motor response: Obey commands Adriana coma scale total score: 15 COMMON NORMALS: patient oriented x3 and no focal motor deficits SENSORIUM/ORIENTATION: Yes alert SPEECH: speech normal GAIT: Yes Normal gait present MOTOR EXAM: 5/5 motor strength present throughout Psych: COMMON NORMALS: mental status grossly normal, Normal thought process present, cooperative, normal affect, speech normal and activity/motor behavior normal ACTIVITY/MOTOR BEHAVIOR: Yes appropriate eye contact SPEECH: Yes normal speech THOUGHT PROCESS: Normal thought process present Skin: COMMON NORMALS: no rashes or lesions noted, no wounds, turgor normal, no petechiae and no mottling GENERAL SKIN EXAM: no rashes or lesions noted, elasticity normal and turgor normal OTHER: Skin examined for rash, injection sites were Covid vaccine was administered without abnormality/ redness. Course ED course: 50-year-old female patient presents to the emergency department with myalgia complaints. She was advised to come to the ED at the recommendation of her primary care provider who noted need for inflammatory markers. She has continued to experience myalgia symptoms with joint pain after receiving COVID-19 vaccine in July 2020. She reports ibuprofen is more helpful than naproxen. States prednisone did not help pain. C-reactive protein slightly elevated 6.3, ESR 16, white blood count without leukocytosis, lipase 41, chemistry unremarkable. I discussed other etiologies such as rheumatoid arthritis, Lyme disease, she denies tick bite or need for further serology testing as she does not have insurance and is concerned about the cost. She agrees to follow-up with her primary care, is requesting ibuprofen upon exam, new prescription was provided she is advised to discontinue naproxen. I also advised she may contact [employer] engineer to note vaccine adverse reactions. Verbalized understanding and agrees to do so, she was advised to return the emergency department she develop new symptoms such as fever chills nausea vomiting or other concerning symptoms. Vital Signs: Vital signs: Vital Signs Temperature 98.2 F 08/30/20 12:29 Pulse Rate 81 08/30/20 16:19 Respiratory Rate 14 08/30/20 16:19 Blood Pressure 151/86 08/30/20 16:19 Pulse Oximetry 96 08/30/20 16:19 [facility] - General Adult Lab Data: Labs: Lab Results 08/30/20 08/30/20 08/30/20 Range/Units 14:30 14:30 14:30 WBC 9.7 (4.0-10.0) 10^3/ uL RBC 5.41 H (4.1-5.3) 10^6/u L Hgb 16.0 H (11.5-15.3) g/dL Hct 48.9 H (37.0-47.0) % MCV 90.4 (81-99) fL MCH 29.6 (28.0-34.0) pg MCHC 32.7 (30.0-36.0) g/dL RDW 13.1 (12.1-15.1) % Plt Count 263 (130-400) 10^3/c mm MPV 10.0 (7.4-10.4) fL Neut % (Auto) 50.1 % Lymph % (Auto) 40.2 % [place] % (Auto) 5.1 % Eos % (Auto) 3.9 % Baso % (Auto) 0.4 % Neut # (Auto) 4.83 (1.8-7.7) 10^3/u L Lymph # (Auto) 3.9 (0.8-4.8) 10^3/u L [place] # (Auto) 0.5 (0.2-0.9) 10^3/u L Eos # (Auto) 0.4 (0.0-0.8) 10^3/u L Baso # (Auto) 0.0 (0.0-0.1) 10^3/u L Nucleated RBC % (a uto) 0 % Nucleated RBCs # 0.0 /100WBC ESR 16 H (0-15) mm/hr Sodium 137 (136-145) mmol/L Potassium 4.2 (3.5-5.1) mmol/L Chloride 101 (98-107) mmol/L Carbon Dioxide 29 (22-29) mmol/L Anion Gap 11.2 (5-19) BUN 11 (6-20) mg/dL Creatinine 0.7 (0.5-0.9) mg/dL GFR Calculation 87.9 L (90-130) mL/min Glucose 86 (65-115) mg/dL Calculated Osmolal ity 283 L (285-295) mOsm/k g Calcium 9.3 (8.5-10.5) mg/dL Total Bilirubin 0.2 (0.15-1.2) mg/dL AST 16 (0-32) U/L ALT 18 (0-33) U/L Alkaline Phosphata se 106 H (35-105) IU/L C-Reactive Protein 6.3 H (0.0-4.9) mg/L Total Protein 7.2 (6.6-8.7) g/dL Albumin 4.0 (3.5-5.2) g/dL Globulin 3.2 (1.3-4.6) g/dL Lipase 41 (13-60) U/L Imaging Data^: CXR: Radiologist's impression: [facility] [address] [place] [facility] [place] [address] XRay Report Signed Patient: Monica Shook Unit #: [id number] : 1970 Age/Sex: 50 / F ADM Date: 08/30/20 Loc: ER Room/Bed: Attending Dr: Ordering Provider/Ordering MD: Aby Castelan Date of Service: 08/30/20 Procedure(s): XR chest 1V portable [id number] Accession Number(s): [id number] Report Number: [id number] PROCEDURE INFORMATION: Exam: XR Chest Exam date and time: 08/30/2020 2:17 PM Age: 50 years old Clinical indication: Shortness of breath; Additional info: SOB TECHNIQUE: Imaging protocol: XR of the chest Views: 1 view. COMPARISON: CR Chest 1 [place] [id number] 09/05/2015 8:33 PM FINDINGS: Lungs: Unremarkable. No consolidation. Pleural spaces: Unremarkable. No pleural effusion. No pneumothorax. Heart/Mediastinum: Unremarkable. No cardiomegaly. Bones/joints: Unremarkable. XR/XR chest 1V portable [id number] IMPRESSION: No acute findings. Dictated By: James Donaldson MD Signed By: James Donaldson MD Signed Date/Time: 08/30/201453 DD/ 51 Discharge Plan Discharge Patient Disposition: Home Clinical Impression: Myalgia Adverse reaction to vaccine Qualifiers: Encounter type: initial encounter Qualified Code(s): T50.Z95A - Adverse effect of other vaccines and biological substances, initial encounter Condition: Stable Prescriptions: New IBU 600 mg tablet 600 mg PO TID PRN (Reason: pain) Qty: 20 RF: 0 Discontinued naproxen 500 mg tablet 500 mg PO BID PRN (Reason: pain) Qty: 60 RF: 0 ibuprofen 100 mg Tablet 300 mg PO ONCE PRN (Reason: Pain) RF: 0 Discharge Orders: Discharge ED (Routine); Ordered 08/30/20 Ordered By: Aby Castelan Referrals: Messi Patel FNP [Primary Care Provider] - Discharge Diet: Usual diet Discharge Activity: Resume usual activity Patient Instructions: Adverse Drug Reaction (ED), Opioid Safety Activity Restrictions/Additional Instructions: Stop naproxen, start ibuprofen, 600 mg p.o. 3 times daily as needed for pain, take with food to avoid stomach upset May take Tylenol, 1 g 3 times daily as needed for pain continue follow-up with your primary care provider in the next 7 to 10 days if not improved Return to the emergency department if you develop nausea vomiting, diarrhea fever or chills or other concerning symptoms Coding Level of Care Code ED Abap Developer for Chg Fwd Exam Comprehensive
[2020-08-30 15:04] LABS: Alanine Aminotransferase 18 U/L (0-33); Alkaline Phosphatase 106 IU/L (35-105); Anion Gap 11.2 (5-19); Aspartate Amino Transferase 16 U/L (0-32); Blood Urea Nitrogen 11 mg/dL (6-20); C Reactive Protein 6.3 mg/L (0.0-4.9); Calcium 9.3 mg/dL (8.5-10.5); Carbon Dioxide 29 mmol/L (22-29); Chloride 101 mmol/L (98-107); Globulin 3.2 g/dL (1.3-4.6); Glomerular Filtration Rate 87.9 mL/min (90-130); Glucose 86 mg/dL (65-115); Lipase 41 U/L (13-60); Osmolality Calculated 283 mOsm/kg (285-295); Potassium 4.2 mmol/L (3.5-5.1); Sodium 137 mmol/L (136-145); Total Bilirubin 0.2 mg/dL (0.15-1.2); Total Protein 7.2 g/dL (6.6-8.7)
[2020-08-30 15:24] LABS: Erythrocyte Sedimentation Rate 16 mm/hr (0-15)
[2020-08-30] MEDS: acetaminophen 500 mg Tablet 1000 MG PO (15:40)
[2020-08-30] MEDS: ketorolac 30 mg/mL INJ IVP (15:40)
[2020-08-30 16:19] VITALS: BP 151/86; PULSE 81; RESP 14; O2SAT 96
== END 2020-08-30 16:20 | disposition home or self-care (01) ==
PROVIDERS: Emergency Provider Nurse Practitioner Family; PCP Nurse Practitioner Family
DX: M79.10 Myalgia, unspecified site (principal); T50.Z95A Adverse effect of other vaccines and biological substances, initial encounter; J44.9 Chronic obstructive pulmonary disease, unspecified; F17.210 Nicotine dependence, cigarettes, uncomplicated
CPT/HCPCS: 71045; 80053; 83690; 85025; 85651; 86140; 96374; 99283; J1885

== ENCOUNTER → 2020-11-02 11:46 | Outpatient (BNVA) | payer SELFPAY | PROVIDERS: PCP Nurse Practitioner Family; Visit Provider Emergency Medicine | DX: M25.541 Pain in joints of right hand (principal); M25.542 Pain in joints of left hand; J44.9 Chronic obstructive pulmonary disease, unspecified; F10.10 Alcohol abuse, uncomplicated; R10.9 Unspecified abdominal pain; F17.200 Nicotine dependence, unspecified, uncomplicated | CPT/HCPCS: 73120; 86160; 86162; 86235; 86255; 86376; 86431 ==

== ENCOUNTER 2021-01-25 06:00 | Outpatient (RCR) | payer SELFPAY | END 2021-02-07 23:59 | disposition home or self-care (01) | LOC: MOT 06:00 | PROVIDERS: PCP Nurse Practitioner Family; Referring Provider Specialist; Visit Provider Specialist | DX: M79.641 Pain in right hand (principal) | CPT/HCPCS: 97110; 97140; 97165; 97760 ==

== ENCOUNTER 2021-02-08 06:00 | Outpatient (RCR) | payer SELFPAY | END 2021-03-09 23:59 | disposition home or self-care (01) | LOC: MOT 06:00 | PROVIDERS: PCP Nurse Practitioner Family; Referring Provider Specialist; Visit Provider Specialist | DX: M79.641 Pain in right hand (principal) | CPT/HCPCS: 97110; 97140; 97760 ==

== ENCOUNTER 2021-05-04 17:11 | Emergency (ER) | payer MEDICAID, SELFPAY ==
[2021-05-04 17:49] VITALS: BP 167/81; PULSE 104; RESP 16; TEMP 36.3; O2SAT 97; BMI 23.9
[2021-05-04 19:15] LABS: Add Urine Microscopic? NO; Charge for UA Resulting for Rev
[2021-05-04 19:21] LABS: Bilirubin Urine Neg (Negative); Blood Urine Neg (Negative); Glucose Urine UA Norm (Normal); Ketones Urine Negative (Negative); Leukocyte Esterase Urine Negative (Negative); Nitrate Urine Negative (Negative); Protein Urine Neg (Negative); Specific Gravity, Urine 1.015 (1.005-1.030); Urine Appearance Clear (CLEAR); Urine Color Yellow (Yellow); Urobilinogen Urine Norm (Negative); pH Urine 6 (5-7)
[2021-05-04 19:26] LABS: Basophils % 0.3 %; Eosinophils # 0.1 10^3/uL (0.0-0.8); Eosinophils % 0.6 %; Hematocrit 46.8 % (37.0-47.0); Hemoglobin 15.2 g/dL (11.5-15.3); Lymphocytes # 2.2 10^3/uL (0.8-4.8); Lymphocytes % 23.9 %; Mean Corpuscular HGB Conc 32.5 g/dL (30.0-36.0); Mean Corpuscular Hemoglobin 29.5 pg (28.0-34.0); Mean Corpuscular Volume 90.7 fl (81-99); Mean Platelet Volume 10.7 fL (7.4-10.4); Monocytes # 0.4 10^3/uL (0.2-0.9); Monocytes % 4.2 %; Neutrophils # 6.36 10^3/uL (1.8-7.7); Neutrophils % 70.9 %; Nucleated Red Blood Cells % 0 %; Platelet Count 261 10^3/cmm (130-400); Red Blood Count 5.16 10^6/uL (4.1-5.3); Red Cell Distribution Width 13.9 % (12.1-15.1)
--- NOTE | 2021-05-04 19:36 | CTR_ITS ---
PROCEDURE INFORMATION: Exam: CT Abdomen And Pelvis With Contrast Exam date and time: 05/04/2021 7:36 PM Age: 50 years old Clinical indication: Abdominal pain; Localized; Prior surgery; Surgery type: Gb; Patient HX: Lower abd pain with nausea. TECHNIQUE: Imaging protocol: Computed tomography of the abdomen and pelvis with contrast. Radiation optimization: All CT scans at this facility use at least one of these dose optimization techniques: automated exposure control; mA and/or kV adjustment per patient size (includes targeted exams where dose is matched to clinical indication); or iterative reconstruction. Contrast material: OMNI 300; Contrast volume: 95 ml; Contrast route: INTRAVENOUS (IV); COMPARISON: CT abdomen pelvis w con* [id number] 10/30/2019 11:17 AM RADIATION DOSE METRICS: Total DLP (mGy-cm): 999.41 FINDINGS: Liver: Normal. No mass. Gallbladder and bile ducts: Cholecystectomy. No ductal dilation. Pancreas: Normal. No ductal dilation. Spleen: Normal. No splenomegaly. Adrenal glands: Normal. No mass. Kidneys and ureters: Normal. No hydronephrosis. Stomach and bowel: Colonic diverticulosis predominantly centered within the sigmoid colon. Wall thickening with pericolonic hyperemia and trace pelvic free fluid is noted centered around the sigmoid colon. No pericolonic fluid collection is seen. Appendix: No evidence of appendicitis. Intraperitoneal space: No free air. No significant fluid collection. Vasculature: Unremarkable. No abdominal aortic aneurysm. Lymph nodes: Unremarkable. No enlarged lymph nodes. Urinary bladder: Unremarkable as visualized. Reproductive: Unremarkable as visualized. Bones/joints: No acute fracture. Soft tissues: Unremarkable. CT/CT abdomen pelvis w con* [id number] IMPRESSION: Acute uncomplicated sigmoid diverticulitis. Radiation Dose CTDIVOL = (mGy): DLP = 999.41 (mGy-cm)
--- NOTE | 2021-05-04 19:41 | W.ED.DIZZY ---
HPI - Dizziness General: Chief Complaint: Dizziness Stated Complaint: Abdominal pain Time Seen by Provider: 05/04/21 19:28 Source: patient Mode of arrival: ambulatory Limitations: no limitations History of Present Illness: HPI Narrative: 50-year-old female states she has been having left lower quadrant pain over the last 6 days. States is gotten much worse over the last 2 days states pain is sharp in nature rates it a 7 out of 10 states is worse with movement improved with rest she has had no vomiting no diarrhea she denies any fevers. She denies any chest pain states she has had some slight dizziness she believes is due to the pain Associated symptoms: Denies chest pain, chills or headache(s) Review of Systems Const: Denies: fever(s), chills, body aches or change in appetite Eyes: Denies: blurry vision or eye discomfort ENMT: Denies: throat pain or dental pain Card: Denies: chest pain Resp: Denies: dyspnea GI: Reports: abdominal pain : Denies: dysuria Musc: Denies: neck pain or back pain Skin/Breast: Denies: rash Neuro: Denies: headache(s) Psych: Denies: depression Christopher/Lymph: Denies: easy bruising All/Imm: Denies: urticaria PFSH ED PFSH: Medical History Abdominal pain Alcohol abuse, daily use Arthralgia of hands, bilateral Chronic obstructive pulmonary disease Pancreatitis Smoking Surgical History History of tubal ligation Family History Denies family history of Anesthesia complication Bleeding disorder Social History Smoking and tobacco status: current every day smoker cigarettes Packs smoked per day: 1.5 Alcohol intake: current Alcohol intake frequency: few times a month History of recent travel: No Female Reproductive History: Spontaneous abortions: No Physical Exam Const: COMMON NORMALS: no acute distress, patient oriented x3 and healthy appearing HENMT: COMMON NORMALS: normocephalic and atraumatic HEAD & SCALP: normocephalic and atraumatic Eye: COMMON NORMALS: Equal, round and reactive pupils present and EOMs intact bilaterally PUPIL: Yes Equal, round and reactive pupils present Neck/C-Spine: COMMON NORMALS: full ROM and supple Chest: COMMONS NORMALS: normal inspection of the chest and normal palpation of entire chest wall Resp: COMMON NORMALS: normal respiratory effort, No retractions, No use of accessory muscles and clear to auscultation bilaterally AUSCULTATION: clear to auscultation bilaterally Cardio: COMMON NORMALS: regular rate, regular rhythm and No murmurs present (Cardio) RATE: regular rate RHYTHM: regular rhythm GI: COMMON NORMALS: Normal to inspection, nondistended, normoactive bowel sounds present, Soft to palpation and no masses PALPATION: Yes Soft to palpation and Yes Tenderness to palpation present (GI) Details: LLQ Extremity: COMMON NORMALS: normal to inspection and full ROM Neuro: COMMON NORMALS: patient oriented x3, moves all extremities and no focal motor deficits Psych: COMMON NORMALS: mental status grossly normal, Normal thought process present and cooperative THOUGHT PROCESS: Normal thought process present Skin: COMMON NORMALS: no rashes or lesions noted and no wounds GENERAL SKIN EXAM: no rashes or lesions noted Course Vital Signs: Vital signs: Vital Signs Temperature 97.4 F L 05/04/21 17:49 Pulse Rate 96 05/04/21 21:30 Respiratory Rate 12 05/04/21 21:37 Blood Pressure 116/65 05/04/21 21:30 Pulse Oximetry 95 05/04/21 21:30 MDM - Dizziness MDM Narrative: Medical decision making narrative: Patient presents with diverticulitis pain here is controlled she has no signs of sepsis she has no perforation we will place her on antibiotics along with pain meds she is to follow-up with her PCP in 5 to 7 days and return if worsening. She understands agrees to plan. Lab Data: Labs: Lab Results 05/04/21 05/04/21 05/04/21 17:54 19:15 19:15 WBC 9.0 10^3/uL 10^3/ uL (4.0-10.0) RBC 5.16 10^6/uL 10^6 /uL (4.1-5.3) Hgb 15.2 g/dL g/dL (11.5-15.3) Hct 46.8 % % (37.0-47.0) MCV 90.7 fl fl (81-99) MCH 29.5 pg pg (28.0-34.0) MCHC 32.5 g/dL g/dL (30.0-36.0) RDW 13.9 % % (12.1-15.1) Plt Count 261 10^3/cmm 10^3 /cmm (130-400) MPV 10.7 fL H fL (7.4-10.4) Neut % (Auto) 70.9 % % Lymph % (Auto) 23.9 % % [place] % (Auto) 4.2 % % Eos % (Auto) 0.6 % % Baso % (Auto) 0.3 % % Neut # (Auto) 6.36 10^3/uL 10^3 /uL (1.8-7.7) Lymph # (Auto) 2.2 10^3/uL 10^3/ uL (0.8-4.8) [place] # (Auto) 0.4 10^3/uL 10^3/ uL (0.2-0.9) Eos # (Auto) 0.1 10^3/uL 10^3/ uL (0.0-0.8) Baso # (Auto) 0.0 10^3/uL 10^3/ uL (0.0-0.1) Nucleated RBC % (a uto) 0 % % Nucleated RBCs # 0.0 /100WBC /100W BC Sodium 136 mmol/L mmol/L (136-145) Potassium 3.5 mmol/L mmol/L (3.5-5.1) Chloride 100 mmol/L mmol/L (98-107) Carbon Dioxide 26 mmol/L mmol/L (22-29) Anion Gap 13.5 (5-19) BUN 8 mg/dL mg/dL (6-20) Creatinine 0.6 mg/dL mg/dL (0.5-0.9) GFR Calculation 105.0 mL/min mL/m in (90-130) Glucose 96 mg/dL mg/dL (65-115) Calculated Osmolal ity 280 mOsm/kg L mOs m/kg (285-295) Calcium 9.1 mg/dL mg/dL (8.5-10.5) Total Bilirubin 0.2 mg/dL mg/dL (0.15-1.2) AST 10 U/L U/L (0-32) ALT 8 U/L U/L (0-33) Alkaline Phosphata se 87 IU/L IU/L (35-105) Total Protein 7.0 g/dL g/dL (6.6-8.7) Albumin 3.5 g/dL g/dL (3.5-5.2) Globulin 3.5 g/dL g/dL (1.3-4.6) Lipase 34 U/L U/L (13-60) Urine Color Yellow (Yellow) Urine Appearance Clear (CLEAR) Urine pH 6 (5-7) Ur Specific Gravit y 1.015 (1.005-1.030) Urine Protein Neg (Negative) Urine Glucose (UA) Norm (Normal) Urine Ketones Negative (Negative) Urine Blood Neg (Negative) Urine Nitrate Negative (Negative) Urine Bilirubin Neg (Negative) Urine Urobilinogen Norm mg/dL mg/dL (Negative) Ur Leukocyte Brittany ase Negative (Negative) Imaging Data^: CT Abd/Pel: Attestation: I personally reviewed and interpreted this imaging study as follows: Radiologist's impression: [id number] [id number] [address] Scan Report Signed Patient: Monica Shook Unit #: [id number] : 1970 Age/Sex: 50 / F ADM Date: 05/04/21 Loc: ER Room/Bed: Attending Dr: Ordering Provider/Ordering MD: Merrick Manning MD Date of Service: 05/04/21 Procedure(s): CT abdomen pelvis w con* [id number] Accession Number(s): [id number] Report Number: [id number] PROCEDURE INFORMATION: Exam: CT Abdomen And Pelvis With Contrast Exam date and time: 05/04/2021 7:36 PM Age: 50 years old Clinical indication: Abdominal pain; Localized; Prior surgery; Surgery type: Gb; Patient HX: Lower abd pain with nausea. TECHNIQUE: Imaging protocol: Computed tomography of the abdomen and pelvis with contrast. Radiation optimization: All CT scans at this facility use at least one of these dose optimization techniques: automated exposure control; mA and/or kV adjustment per patient size (includes targeted exams where dose is matched to clinical indication); or iterative reconstruction. Contrast material: OMNI 300; Contrast volume: 95 ml; Contrast route: INTRAVENOUS (IV); COMPARISON: CT abdomen pelvis w con* [id number] 10/30/2019 11:17 AM RADIATION DOSE METRICS: Total DLP (mGy-cm): 999.41 FINDINGS: Liver: Normal. No mass. Gallbladder and bile ducts: Cholecystectomy. No ductal dilation. Pancreas: Normal. No ductal dilation. Spleen: Normal. No splenomegaly. Adrenal glands: Normal. No mass. Kidneys and ureters: Normal. No hydronephrosis. Stomach and bowel: Colonic diverticulosis predominantly centered within the sigmoid colon. Wall thickening with pericolonic hyperemia and trace pelvic free fluid is noted centered around the sigmoid colon. No pericolonic fluid collection is seen. Appendix: No evidence of appendicitis. Intraperitoneal space: No free air. No significant fluid collection. Vasculature: Unremarkable. No abdominal aortic aneurysm. Lymph nodes: Unremarkable. No enlarged lymph nodes. Urinary bladder: Unremarkable as visualized. Reproductive: Unremarkable as visualized. Bones/joints: No acute fracture. Soft tissues: Unremarkable. CT/CT abdomen pelvis w con* [id number] IMPRESSION: Acute uncomplicated sigmoid diverticulitis. Radiation Dose CTDIVOL = (mGy): DLP = 999.41 (mGy-cm) Dictated By: Yohan Moreno DO Signed By: Yohan Moreno DO Signed Date/Time: 05/04/212215 DD/ 35 Discharge Plan Discharge Patient Disposition: Home Clinical Impression: Diverticulitis Condition: Stable Prescriptions: New hydrocodone-acetaminophen 5-325 mg tablet 1 tab PO Q6H PRN (Reason: pain) Qty: 14 RF: 0 ondansetron 4 mg tablet,disintegrating 4 mg PO Q6H PRN (Reason: nausea and vomiting) Qty: 14 RF: 0 Cipro 500 mg tablet 500 mg PO Q12H Qty: 7 RF: 0 Flagyl 500 mg tablet 500 mg PO Q8H 7 Days Qty: 21 RF: 0 No Action acetaminophen [Tylenol Extra Strength] 500 mg tablet 500 mg PO Q6H PRNRF: 0 prednisone 20 mg tablet 60 mg PO DAILY 9 Days Qty: 18 RF: 0 celecoxib 100 mg capsule See Rx Instructions .ROUTE .COMPLEX Qty: 60 RF: 1 Discharge Orders: Discharge ED (Routine); Ordered 05/04/21 Ordered By: Merrick Manning Referrals: Messi Patel FNP [Primary Care Provider] - 1-3 days Discharge Diet: Advance as tolerated Discharge Activity: Resume usual activity Patient Instructions: Diverticulitis (ED), Opioid Safety Coding Level of Care Code ED Passenger Barge Master for Chg Fwd Exam Comprehensive
[2021-05-04 19:51] LABS: Alanine Aminotransferase 8 U/L (0-33); Albumin Level 3.5 g/dL (3.5-5.2); Alkaline Phosphatase 87 IU/L (35-105); Anion Gap 13.5 (5-19); Aspartate Amino Transferase 10 U/L (0-32); Blood Urea Nitrogen 8 mg/dL (6-20); Calcium 9.1 mg/dL (8.5-10.5); Carbon Dioxide 26 mmol/L (22-29); Chloride 100 mmol/L (98-107); Creatinine Clr Calc Pharmacy 96.8487; Globulin 3.5 g/dL (1.3-4.6); Glucose 96 mg/dL (65-115); Lipase 34 U/L (13-60); Osmolality Calculated 280 mOsm/kg (285-295); Potassium 3.5 mmol/L (3.5-5.1); Sodium 136 mmol/L (136-145); Total Bilirubin 0.2 mg/dL (0.15-1.2)
[2021-05-04 19:56] VITALS: RESP 30
[2021-05-04] MEDS: ondansetron 2 mg/ML SDV 2 mL 4 MG IVP (19:56)
[2021-05-04] MEDS: morphine 4 mg/mL SDV 1 mL IVP (19:56)
[2021-05-04] MEDS: sodium chloride 0.9% 1,000 ML 999 ML IV (19:59)
[2021-05-04 20:01] VITALS: BP 147/82; PULSE 97; RESP 19; O2SAT 93
[2021-05-04] MEDS: iohexol 300 mg/mL 100 mL Btl IV (21:00)
[2021-05-04 21:30] VITALS: BP 116/65; PULSE 96; RESP 18; O2SAT 95
[2021-05-04 21:37] VITALS: RESP 12
[2021-05-04] MEDS: HYDROmorphone 1 mg/mL INJ 1 mL IVP (21:37)
[2021-05-04 22:24] VITALS: BP 125/77; PULSE 98; RESP 18; O2SAT 94
== END 2021-05-04 22:35 | disposition home or self-care (01) ==
PROVIDERS: Emergency Provider Emergency Medicine; PCP Nurse Practitioner Family
DX: K57.92 Diverticulitis of intestine, part unspecified, without perforation or abscess without bleeding (principal); Z79.52 Long term (current) use of systemic steroids
CPT/HCPCS: 74177; 80053; 81003; 83690; 85025; 96361; 96374; 96375; 99284; J1170; J2270; J2405; J7030; Q9967

== ENCOUNTER 2021-05-22 11:18 | Emergency (ER) | payer MEDICAID, SELFPAY ==
[2021-05-22 11:32] VITALS: BP 128/69; PULSE 95; RESP 18; TEMP 36.8; O2SAT 94; BMI 23.9
--- NOTE | 2021-05-22 11:34 | ECG_ITS ---
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 Measurements Intervals [place] Rate: 81 P: 23 MT: 149 QRS: 74 QRSD: 89 T: 59 QT: 366 QTc: 426 Interpretive Statements SINUS RHYTHM INTERPRETATION BASED ON A DEFAULT AGE OF 40 YEARS Compared to ECG 09/05/2015 20:24:35 No significant changes Electronically Signed On 05-22-2021 20:46:16 [employer] by Tiago Diaz M.D. [email or web address]
--- NOTE | 2021-05-22 11:51 | CT_ITS ---
WS: [id number] CT ABDOMEN PELVIS TECHNIQUE: Contrast-enhanced CT of the abdomen and pelvis with coronal and sagittal reformatted image s. CLINICAL INFORMATION: abd pain COMPARISON: May 04, 2021 DLP: 886.[address] scans at [facility] use at least one of these dose optimization techniques: automated e xposure control; mA and/or kV adjustment per patient size (includes targeted exams where dose is matc hed to clinical indication); or iterative reconstruction. FINDINGS: Again seen are changes of acute sigmoid diverticulitis. Diffuse thickening with inflammatory strandin g of the sigmoid colon similar in appearance compared to the prior examination. This appears slightly improved but persistent and not significantly changed. No evidence of drainable abscess or fluid col lection. No evidence of high-grade small or large bowel obstruction. Mild diffuse fatty infiltration of the li louann. Prior cholecystectomy. Normal spleen. Normal GE junction. Adrenal glands are normal. Normal missael l parenchymal enhancement. No hydronephrosis. Slight atelectasis in the lung bases. Tiny fat-containi ng umbilical hernia. Aortic calcification. Normal caliber abdominal aorta. CT/CT abdomen pelvis w con* [id number] IMPRESSION: 1. Again seen is acute sigmoid diverticulitis which is persistent and appears slightly improved but otherwise not significantly changed. No evidence of drain able abscess or fluid collection. 2. No free fluid in the pelvis. 3. No other significant changes compared to previous. Attempted notification Asher Nair DO at 05/22/2021 12:51 PM.
--- NOTE | 2021-05-22 11:51 | W.ED.ABDPA2 ---
HPI - Abdominal Pain General: Chief Complaint: Abdominal Pain Stated Complaint: SEVERE ABD PAINS HX OF DIVERTICULITIS Time Seen by Provider: 05/22/21 11:31 History of Present Illness: HPI narrative: 50-year-old female presents to the emergency room with complaints of left lower quadrant abdominal pain. She was here couple weeks ago and was started on Cipro and Flagyl states she had 7 days of Flagyl and 3 days of Cipro she completed that and had recurrence of symptoms and was restarted on Cipro alone by her primary care doctor she has 1 day left of that she denies hematochezia or melena. No previous abdominal surgeries. She denies dysuria urgency frequency no vomiting. MD elicited complaint: abdominal pain Pertinent past history: diverticulitis Onset (ago): week(s) (2) Pain Consistency: intermittent and colicky Location: LLQ Severity: moderate Quality: cramping Radiation: none Exacerbating factors: nothing Relieving factors: nothing Associated Symptoms: Reports anorexia, bloating, change in stool character, GI cramping, diarrhea and poor appetite; Denies belching, change in bowel habits, chills, coffee ground emesis, constipation, dyspepsia, dysuria, excessive flatus, fever(s), heartburn, hematochezia, hematuria, hematemesis, fecal incontinence, loose stools, melena, nausea, syncope and vomiting Review of Systems Const: Denies: fever(s) or chills ENMT: Denies: throat pain, ear or mastoid pain, nasal discharge or nasal congestion Card: Denies: syncope Resp: Denies: dyspnea, productive cough or non-productive cough GI: Reports: diarrhea, bloating, GI cramping and change in stool character; Denies: nausea, vomiting, hematemesis, coffee ground emesis, heartburn, constipation, belching, excessive flatus, fecal incontinence, change in bowel habits, hematochezia or melena : Denies: dysuria or hematuria Skin/Breast: Denies: rash or pruritus PFSH ED PFSH: Medical History Abdominal pain Alcohol abuse, daily use Arthralgia of hands, bilateral Chronic obstructive pulmonary disease Pancreatitis Smoking Surgical History History of tubal ligation Family History Denies family history of Anesthesia complication Bleeding disorder Social History Smoking and tobacco status: current every day smoker cigarettes Packs smoked per day: 1.5 Alcohol intake: current Alcohol intake frequency: few times a month History of recent travel: No Female Reproductive History: Spontaneous abortions: No Physical Exam Const: COMMON NORMALS: no acute distress GENERAL APPEARANCE: cooperative and comfortable ORIENTATION/CONSCIOUSNESS: Yes awake, Yes oriented to person, Yes oriented to place and Yes oriented to time HENMT: COMMON NORMALS: normocephalic, atraumatic and hearing grossly normal bilaterally HEAD & SCALP: normocephalic and atraumatic Neck/C-Spine: COMMON NORMALS: no JVD Resp: COMMON NORMALS: normal respiratory effort, No retractions, No use of accessory muscles and clear to auscultation bilaterally AUSCULTATION: clear to auscultation bilaterally Cardio: COMMON NORMALS: no JVD, regular rate, regular rhythm and No murmurs present (Cardio) RATE: regular rate RHYTHM: regular rhythm GI: COMMON NORMALS: Soft to palpation and No hepatosplenomegaly present AUSCULTATION: Yes normoactive bowel sounds PALPATION: Yes Soft to palpation, Yes Tenderness to palpation present (GI) Details: LLQ, No Guarding due to palpation present (GI) and Yes No hepatosplenomegaly present Extremity: COMMON NORMALS: normal to inspection, capillary refill normal, no clubbing, cyanosis or edema, no calf tenderness and no pedal edema Neuro: SENSORIUM/ORIENTATION: Yes oriented to person, Yes oriented to place and Yes oriented to time Skin: COMMON NORMALS: no rashes or lesions noted GENERAL SKIN EXAM: no rashes or lesions noted Course Vital Signs: Vital signs: Vital Signs Temperature 98.3 F 05/22/21 11:32 Pulse Rate 91 05/22/21 13:30 Respiratory Rate 16 05/22/21 13:30 Blood Pressure 131/94 05/22/21 13:30 Pulse Oximetry 95 05/22/21 13:30 MDM - Abdominal Pain MDM Narrative: Medical decision making narrative: CT shows persistent diverticular disease without evidence of abscess perforation. We will switch her to Augmentin hydrocodone Zofran. Remainder labs imaging reviewed and discussed the patient clinical diet 24 to 48 hours return to the ER for any problems 48 hours advance diet as tolerated follow-up with primary care doctor within a week. Encouraged her to discuss getting colonoscopy at some point in the future estimated 6 to 8 weeks further evaluate. Lab Data: Labs: Lab Results 05/22/21 05/22/21 05/22/21 11:49 11:58 11:58 WBC 9.9 10^3/uL 10^3/ uL (4.0-10.0) RBC 5.53 10^6/uL H 10 ^6/uL (4.1-5.3) Hgb 16.2 g/dL H g/dL (11.5-15.3) Hct 49.9 % H % (37.0-47.0) MCV 90.2 fl fl (81-99) MCH 29.3 pg pg (28.0-34.0) MCHC 32.5 g/dL g/dL (30.0-36.0) RDW 14.2 % % (12.1-15.1) Plt Count 261 10^3/cmm 10^3 /cmm (130-400) MPV 11.1 fL H fL (7.4-10.4) Neut % (Auto) 69.7 % % Lymph % (Auto) 23.6 % % [place] % (Auto) 4.6 % % Eos % (Auto) 1.3 % % Baso % (Auto) 0.4 % % Neut # (Auto) 6.91 10^3/uL 10^3 /uL (1.8-7.7) Lymph # (Auto) 2.3 10^3/uL 10^3/ uL (0.8-4.8) [place] # (Auto) 0.5 10^3/uL 10^3/ uL (0.2-0.9) Eos # (Auto) 0.1 10^3/uL 10^3/ uL (0.0-0.8) Baso # (Auto) 0.0 10^3/uL 10^3/ uL (0.0-0.1) Nucleated RBC % (a uto) 0 % % Nucleated RBCs # 0.0 /100WBC /100W BC Sodium 138 mmol/L mmol/L (136-145) Potassium 3.9 mmol/L mmol/L (3.5-5.1) Chloride 101 mmol/L mmol/L (98-107) Carbon Dioxide 22 mmol/L mmol/L (22-29) Anion Gap 18.9 (5-19) BUN 6 mg/dL mg/dL (6-20) Creatinine 0.6 mg/dL mg/dL (0.5-0.9) GFR Calculation 105.0 mL/min mL/m in (90-130) Glucose 80 mg/dL mg/dL (65-115) Calculated Osmolal ity 283 mOsm/kg L mOs m/kg (285-295) Calcium 8.7 mg/dL mg/dL (8.5-10.5) Total Bilirubin 0.2 mg/dL mg/dL (0.15-1.2) AST 12 U/L U/L (0-32) ALT 11 U/L U/L (0-33) Alkaline Phosphata se 87 IU/L IU/L (35-105) Total Protein 7.1 g/dL g/dL (6.6-8.7) Albumin 4.0 g/dL g/dL (3.5-5.2) Globulin 3.1 g/dL g/dL (1.3-4.6) Urine Color Yellow (Yellow) Urine Appearance Clear (CLEAR) Urine pH 6 (5-7) Ur Specific Gravit y 1.010 (1.005-1.030) Urine Protein Neg (Negative) Urine Glucose (UA) Norm (Normal) Urine Ketones Negative (Negative) Urine Blood Neg (Negative) Urine Nitrate Negative (Negative) Urine Bilirubin Neg (Negative) Prot Sulfosalicyli c Acd Negative (Negative) Urine Urobilinogen Norm mg/dL mg/dL (Negative) Ur Leukocyte Brittany ase Negative (Negative) Discharge Plan Discharge Patient Disposition: Home Clinical Impression: Diverticulitis Condition: Stable Prescriptions: New Augmentin 875-125 mg tablet 1 tab PO BID Qty: 20 RF: 0 hydrocodone-acetaminophen 5-325 mg tablet 1 tab PO Q6H PRN (Reason: pain) Qty: 15 RF: 0 Zofran 4 mg tablet 4 mg PO Q6H PRN (Reason: nausea and vomiting) Qty: 15 RF: 0 No Action acetaminophen [Tylenol Extra Strength] 500 mg tablet 500 mg PO Q6H PRNRF: 0 Cipro 500 mg tablet 500 mg PO Q12H Qty: 14 RF: 0 ondansetron 4 mg tablet,disintegrating 4 mg PO Q6H PRN (Reason: nausea and vomiting) Qty: 20 RF: 0 hydrocodone-acetaminophen 5-325 mg tablet 1 tab PO BID PRN (Reason: pain) 5 Days Qty: 10 RF: 0 hydrocodone-acetaminophen 5-325 mg tablet 1 tab PO Q6H PRN (Reason: pain) Qty: 14 RF: 0 ondansetron 4 mg tablet,disintegrating 4 mg PO Q6H PRN (Reason: nausea and vomiting) Qty: 14 RF: 0 Discharge Orders: Discharge ED (Routine); Ordered 05/22/21 Ordered By: Asher Nair Referrals: Messi Patel FNP [Primary Care Provider] - Discharge Diet: Clear Liquid Patient Instructions: Opioid Safety Coding Level of Care Code ED Die Try Out Worker Stamping for Johng Fwd Exam Comprehensive
--- NOTE | 2021-05-22 12:04 | PC.NURSE ---
PT PLACED ON CONTINUOUS SPO2, NIBP, AND CM MONITORING.
[2021-05-22 12:06] VITALS: BP 142/75; PULSE 88; RESP 18; O2SAT 96
[2021-05-22] MEDS: sodium chloride 0.9% 1,000 ML 999 ML IV (12:09)
[2021-05-22] MEDS: ondansetron 2 mg/ML SDV 2 mL 4 MG IVP (12:09)
[2021-05-22 12:12] VITALS: RESP 16; O2SAT 98
[2021-05-22] MEDS: morphine 4 mg/mL SDV 1 mL IVP ×2 (12:12→13:28)
[2021-05-22 12:15] LABS: Add Urine Microscopic? NO; Charge for UA Resulting for Rev
[2021-05-22 12:15] LABS: Basophils % 0.4 %; Eosinophils # 0.1 10^3/uL (0.0-0.8); Eosinophils % 1.3 %; Hematocrit 49.9 % (37.0-47.0); Hemoglobin 16.2 g/dL (11.5-15.3); Lymphocytes # 2.3 10^3/uL (0.8-4.8); Lymphocytes % 23.6 %; Mean Corpuscular HGB Conc 32.5 g/dL (30.0-36.0); Mean Corpuscular Hemoglobin 29.3 pg (28.0-34.0); Mean Corpuscular Volume 90.2 fl (81-99); Mean Platelet Volume 11.1 fL (7.4-10.4); Monocytes # 0.5 10^3/uL (0.2-0.9); Monocytes % 4.6 %; Neutrophils # 6.91 10^3/uL (1.8-7.7); Neutrophils % 69.7 %; Nucleated Red Blood Cells % 0 %; Platelet Count 261 10^3/cmm (130-400); Red Blood Count 5.53 10^6/uL (4.1-5.3); Red Cell Distribution Width 14.2 % (12.1-15.1); White Blood Count 9.9 10^3/uL (4.0-10.0)
[2021-05-22 12:21] LABS: Bilirubin Urine Neg (Negative); Blood Urine Neg (Negative); Glucose Urine UA Norm (Normal); Ketones Urine Negative (Negative); Leukocyte Esterase Urine Negative (Negative); Nitrate Urine Negative (Negative); Protein Urine Neg (Negative); Sulfosalicylic Acid Urine Negative (Negative); Urine Appearance Clear (CLEAR); Urine Color Yellow (Yellow); Urobilinogen Urine Norm (Negative); pH Urine 6 (5-7)
[2021-05-22] MEDS: iohexol 300 mg/mL 100 mL Btl IV (12:28)
[2021-05-22 12:30] VITALS: BP 140/87; PULSE 84; RESP 14; O2SAT 93
[2021-05-22 12:44] LABS: Alanine Aminotransferase 11 U/L (0-33); Alkaline Phosphatase 87 IU/L (35-105); Anion Gap 18.9 (5-19); Aspartate Amino Transferase 12 U/L (0-32); Blood Urea Nitrogen 6 mg/dL (6-20); Calcium 8.7 mg/dL (8.5-10.5); Carbon Dioxide 22 mmol/L (22-29); Chloride 101 mmol/L (98-107); Creatinine Clr Calc Pharmacy 96.8487; Globulin 3.1 g/dL (1.3-4.6); Glucose 80 mg/dL (65-115); Osmolality Calculated 283 mOsm/kg (285-295); Potassium 3.9 mmol/L (3.5-5.1); Sodium 138 mmol/L (136-145); Total Bilirubin 0.2 mg/dL (0.15-1.2); Total Protein 7.1 g/dL (6.6-8.7)
[2021-05-22 13:28] VITALS: RESP 85; O2SAT 95
[2021-05-22 13:30] VITALS: BP 131/94; PULSE 91; RESP 16; O2SAT 95
== END 2021-05-22 13:39 | disposition home or self-care (01) ==
PROVIDERS: Emergency Provider Family Medicine; PCP Nurse Practitioner Family
DX: K57.92 Diverticulitis of intestine, part unspecified, without perforation or abscess without bleeding (principal); F17.210 Nicotine dependence, cigarettes, uncomplicated
CPT/HCPCS: 74177; 80053; 81003; 85025; 93005; 96361; 96374; 96375; 96376; 99284; J2270; J2405; J7030; Q9967

== ENCOUNTER 2022-04-25 09:48 | Emergency (ER) | payer OTHER, BC, SELFPAY ==
[2022-04-25 09:54] VITALS: BP 138/81; PULSE 104; RESP 18; TEMP 36.7; O2SAT 95; BMI 21.2
[2022-04-25 10:11] VITALS: BP 118/77; PULSE 99; O2SAT 94
--- NOTE | 2022-04-25 10:32 | CT_ITS ---
WS: [id number] CT ABDOMEN PELVIS TECHNIQUE: Contrast-enhanced CT of the abdomen and pelvis with coronal and sagittal reformatted image s. CLINICAL INFORMATION: abd pain COMPARISON: May 22, 2021 DLP: 332.[address] scans at [facility] use at least one of these dose optimization techniques: automated e xposure control; mA and/or kV adjustment per patient size (includes targeted exams where dose is matc hed to clinical indication); or iterative reconstruction. FINDINGS: Diffuse inflammatory stranding with thickening and enhancement involving the sigmoid colon and compat ible with acute diverticulitis. No evidence of drainable abscess or fluid collection. Small amount of free fluid in the pelvis. Mild diffuse fatty infiltration liver. Normal portal vein and splenic vein. Cholecystectomy. Slight a telectasis in the lung bases. Normal spleen. Normal GE junction. Adrenal glands are normal. Normal re nal parenchymal enhancement. No hydronephrosis. Normal portal vein and splenic vein. Normal caliber abdominal aorta. Aortic calcification. Incidental bilateral ovarian cysts. CT/CT abdomen pelvis w con* [id number] IMPRESSION: 1. Inflammatory stranding and edema with thickening of the sigmoid colon joan tible with acute diverticulitis. Small amount of free fluid in the pelvis. No d rainable abscess or fluid collection. Recommend follow-up to resolution. 2. Diffuse fatty infiltration liver. 3. Prior cholecystectomy. 4. No other significant changes compared to previous. Notified Asher Nair DO at 04/25/2022 11:37 AM.
[2022-04-25 10:37] LABS: Basophils % 0.2 %; Eosinophils % 0.5 %; Hematocrit 47.8 % (37.0-47.0); Lymphocytes # 1.5 10^3/uL (0.8-4.8); Lymphocytes % 18.3 %; Mean Corpuscular HGB Conc 33.5 g/dL (30.0-36.0); Mean Corpuscular Hemoglobin 30.4 pg (28.0-34.0); Mean Corpuscular Volume 90.7 fl (81-99); Monocytes # 0.6 10^3/uL (0.2-0.9); Monocytes % 7.2 %; Neutrophils # 5.98 10^3/uL (1.8-7.7); Neutrophils % 73.6 %; Nucleated Red Blood Cells % 0 %; Platelet Count 199 10^3/cmm (130-400); Red Blood Count 5.27 10^6/uL (4.1-5.3); Red Cell Distribution Width 12.9 % (12.1-15.1); White Blood Count 8.1 10^3/uL (4.0-10.0)
--- NOTE | 2022-04-25 10:37 | ED_ITS ---
HPI - Abdominal Pain General: Chief Complaint: Abdominal Pain Stated Complaint: Diverticulitis pain Time Seen by Provider: 04/25/22 10:00 Source: patient Mode of arrival: ambulatory History of Present Illness: 51-year-old female who has had multiple problems with diverticulitis. She has been through several rounds of antibiotics in the last couple months still has left lower quadrant abdominal pain loose stools denies any medication is seen Dr. De La Rosa several times. Did not tolerate metronidazole well so they put her on clindamycin as a sole treatment did not seem to resolve it she been through 2 courses of Augmentin prior to that. MD elicited complaint: abdominal pain Pertinent past history: diverticulitis Onset (ago): week(s) Pain Consistency: intermittent Location: None Severity: mild Quality: cramping Radiation: none Exacerbating factors: nothing Relieving factors: nothing Associated Symptoms: Reports anorexia, bloating, change in bowel habits, change in stool character, GI cramping, diarrhea, nausea and poor appetite; Denies chills, coffee ground emesis, constipation, dyspepsia, dysuria, excessive flatus, fever(s), heartburn, hematochezia, hematuria, hematemesis, fecal incontinence, loose stools, melena, syncope and vomiting Review of Systems Const: Reports: fatigue and malaise; Denies: fever(s) or chills ENMT: Denies: throat pain, ear or mastoid pain, nasal discharge or nasal congestion Card: Reports: chest pain; Denies: syncope Resp: Denies: dyspnea, productive cough or non-productive cough GI: Reports: abdominal pain, nausea, diarrhea, bloating, GI cramping, change in bowel habits and change in stool character; Denies: vomiting, hematemesis, coffee ground emesis, heartburn, constipation, excessive flatus, fecal incontinence, hematochezia or melena : Denies: flank pain, difficulty voiding, dysuria, urinary frequency, urinary urgency or hematuria Skin/Breast: Denies: rash or pruritus PFSH ED PFSH: Medical History Abdominal pain Alcohol abuse, daily use Arthralgia of hands, bilateral Chronic obstructive pulmonary disease Diverticul disease small and large intestine, no perforati or abscess Diverticulitis Pancreatitis Smoking Surgical History History of tubal ligation Family History Denies family history of Anesthesia complication Bleeding disorder Social History Smoking and tobacco status: current every day smoker cigarettes Packs smoked per day: 1.5 Alcohol intake: current Alcohol intake frequency: few times a month History of recent travel: No Female Reproductive History: Spontaneous abortions: No Physical Exam Const: COMMON NORMALS: no acute distress GENERAL APPEARANCE: cooperative and comfortable ORIENTATION/CONSCIOUSNESS: Yes awake, Yes oriented to person, Yes oriented to place and Yes oriented to time HENMT: COMMON NORMALS: normocephalic, atraumatic and hearing grossly normal bilaterally HEAD & SCALP: normocephalic and atraumatic Resp: COMMON NORMALS: normal respiratory effort, No retractions, No use of accessory muscles and clear to auscultation bilaterally AUSCULTATION: clear to auscultation bilaterally Cardio: COMMON NORMALS: regular rate, regular rhythm and No murmurs present (Cardio) RATE: regular rate RHYTHM: regular rhythm GI: COMMON NORMALS: No hepatosplenomegaly present AUSCULTATION: Yes normoactive bowel sounds PALPATION: Yes Tenderness to palpation present (GI) Details: LLQ, No Guarding due to palpation present (GI) and Yes No hepatosplenomegaly present : COMMON NORMALS: Yes no CVA tenderness BLADDER/KIDNEY EXAM: Yes no CVA tenderness Back/Pelvis: COMMON NORMALS: no CVA tenderness Extremity: COMMON NORMALS: normal to inspection, capillary refill normal, no clubbing, cyanosis or edema, no calf tenderness and no pedal edema Neuro: SENSORIUM/ORIENTATION: Yes oriented to person, Yes oriented to place and Yes oriented to time Skin: COMMON NORMALS: no rashes or lesions noted GENERAL SKIN EXAM: no rashes or lesions noted Course Vital Signs: Vital signs: Vital Signs Temperature 98.1 F 04/25/22 09:54 Pulse Rate 80 04/25/22 12:11 Respiratory Rate 18 04/25/22 09:54 Blood Pressure 120/66 04/25/22 11:24 Pulse Oximetry 94 04/25/22 12:11 Oxygen Delivery Me thod 04/25/22 10:11 MDM - Abdominal Pain Medical Decision Making Labs and imaging reviewed EKGs as found in the chart. Discussion with the patient. Recommend we go to Cipro and Flagyl she can take it with food. She has had trouble with Flagyl in the past. I do not believe the stand-alone clindamycin will cover it. She is already had 2 rounds of antibiotic Augmentin in the past 6 weeks. She is willing to try it we will do Cipro and Flagyl for 10 days follow-up with Dr. De La Rosa return if is further problems. Medical Records I reviewed the patient's medical records. Lab Data I reviewed the patient's lab results. : 04/25/22 10:30 04/25/22 10:30 Labs/Radiology: Radiology Impressions Abdomen/Pelvis CT 04/25/22 10:32 IMPRESSION: 1. Inflammatory stranding and edema with thickening of the sigmoid colon compatible with acute diverticulitis. Small amount of free fluid in the pelvis. No drainable abscess or fluid collection. Recommend follow-up to resolution. 2. Diffuse fatty infiltration liver. 3. Prior cholecystectomy. 4. No other significant changes compared to previous. Notified Asher Nair DO at 04/25/2022 11:37 AM. Laboratory Results WBC 8.1 10^3/uL (4.0-10.0) 04/25/22 10:30 RBC 5.27 10^6/uL (4.1-5.3) 04/25/22 10:30 Hgb 16.0 g/dL (11.5-15.3) H 04/25/22 10:30 Hct 47.8 % (37.0-47.0) H 04/25/22 10:30 MCV 90.7 fl (81-99) 04/25/22 10:30 MCH 30.4 pg (28.0-34.0) 04/25/22 10:30 MCHC 33.5 g/dL (30.0-36.0) 04/25/22 10:30 RDW 12.9 % (12.1-15.1) 04/25/22 10:30 Plt Count 199 10^3/cmm (130-400) 04/25/22 10:30 MPV 11.0 fL (7.4-10.4) H 04/25/22 10:30 Neut % (Auto) 73.6 % 04/25/22 10:30 Lymph % (Auto) 18.3 % 04/25/22 10:30 [place] % (Auto) 7.2 % 04/25/22 10:30 Eos % (Auto) 0.5 % 04/25/22 10:30 Baso % (Auto) 0.2 % 04/25/22 10:30 Neut # (Auto) 5.98 10^3/uL (1.8-7.7) 04/25/22 10:30 Lymph # (Auto) 1.5 10^3/uL (0.8-4.8) 04/25/22 10:30 [place] # (Auto) 0.6 10^3/uL (0.2-0.9) 04/25/22 10:30 Eos # (Auto) 0.0 10^3/uL (0.0-0.8) 04/25/22 10:30 Baso # (Auto) 0.0 10^3/uL (0.0-0.1) 04/25/22 10:30 Nucleated RBC % (auto) 0 % 04/25/22 10:30 Nucleated RBCs # 0.0 /100WBC 04/25/22 10:30 Sodium 135 mmol/L (136-145) L 04/25/22 10:30 Potassium 3.6 mmol/L (3.5-5.1) 04/25/22 10:30 Chloride 100 mmol/L (98-107) 04/25/22 10:30 Carbon Dioxide 24 mmol/L (22-29) 04/25/22 10:30 Anion Gap 14.6 (5-19) 04/25/22 10:30 BUN 7 mg/dL (6-20) 04/25/22 10:30 Creatinine 0.4 mg/dL (0.5-0.9) L 04/25/22 10:30 GFR Calculation 167.0 mL/min (90-130) H 04/25/22 10:30 Glucose 79 mg/dL (65-115) 04/25/22 10:30 Calculated Osmolality 277 mOsm/kg (285-295) L 04/25/22 10:30 Calcium 9.1 mg/dL (8.5-10.5) 04/25/22 10:30 Total Bilirubin 0.3 mg/dL (0.15-1.2) 04/25/22 10:30 AST 13 U/L (0-32) 04/25/22 10:30 ALT 10 U/L (0-33) 04/25/22 10:30 Alkaline Phosphatase 89 U/L (35-105) 04/25/22 10:30 Total Protein 7.2 g/dL (6.6-8.7) 04/25/22 10:30 Albumin 3.7 g/dL (3.5-5.2) 04/25/22 10:30 Globulin 3.5 g/dL (1.3-4.6) 04/25/22 10:30 Lipase 18 U/L (13-60) 04/25/22 10:30 Urine Color Yellow (Yellow) 04/25/22 10:30 Urine Appearance Clear (CLEAR) 04/25/22 10:30 Urine pH 7 (5-7) 04/25/22 10:30 Ur Specific [place] 1.010 (1.005-1.030) 04/25/22 10:30 Urine Protein Neg (Negative) 04/25/22 10:30 Urine Glucose (UA) Norm (Normal) 04/25/22 10:30 Urine Ketones 1+ (Negative) H 04/25/22 10:30 Urine Blood Neg (Negative) 04/25/22 10:30 Urine Nitrate Negative (Negative) 04/25/22 10:30 Urine Bilirubin 1+ (Negative) H 04/25/22 10:30 Urine Urobilinogen 1 mg/dL (Negative) H 04/25/22 10:30 Ur Leukocyte Esterase Trace (Negative) H 04/25/22 10:30 Urine RBC Rare /hpf (0-2) 04/25/22 10:30 Urine WBC Rare /hpf (0-5) 04/25/22 10:30 Ur Squamous Epith Cells 15-25 /hpf (0-5) H 04/25/22 10:30 Amorphous Sediment Not Reportable 04/25/22 10:30 Urine Bacteria 1+ /hpf (NONE) H 04/25/22 10:30 Urine Yeast Trace /hpf 04/25/22 10:30 Discharge Plan Discharge Patient Disposition: Home Clinical Impression: Diverticulitis Condition: Stable Prescriptions: New Cipro 500 mg tablet 500 mg PO BID Qty: 20 0RF metronidazole 500 mg tablet 500 mg PO BID 10 Days Qty: 20 0RF hydrocodone-acetaminophen 5-325 mg tablet 1 tab PO Q6H PRN (Reason: pain) Qty: 7 0RF promethazine 25 mg tablet 25 mg PO Q6H PRN (Reason: nausea and vomiting) Qty: 20 0RF No Action acetaminophen [Tylenol Extra Strength] 500 mg tablet 1,000 mg PO Q6H PRN (Reason: Pain) peg 3350-electrolytes [Golytely] 236-22.74-6.74 -5.86 gram recon soln 240 ml PO Q10M Qty: 4000 0RF Rx Instructions: until fecal effluent is clear (FOR TEST ON May) ibuprofen 800 mg tablet 800 mg PO Q8H PRN (Reason: pain) Qty: 30 0RF albuterol sulfate 90 mcg/actuation HFA aerosol inhaler 2 puff inhalation Q6H PRN (Reason: shortness of breath or wheezing) Qty: 8.5 0RF fluticasone propion-salmeterol [Advair Diskus] 250-50 mcg/dose blister with device 1 inh inhalation BID Qty: 60 1RF Premarin 0.625 mg/gram cream See Rx Instructions .ROUTE .COMPLEX Qty: 30 0RF Dose Instruction: O.625 MG VAGINAL DAILY OFF 5 DAYS REPEAT CYCLE Rx Instructions: O.625 MG VAGINAL DAILY OFF 5 DAYS REPEAT CYCLE Discharge Orders: Discharge ED (Routine); Ordered 04/25/22 Ordered By: Asher Nair Referrals: Og Theodore PA [Primary Care Provider] - Discharge Diet: Clear Liquid Discharge Activity: Increase activity as tolerated Patient Instructions: Opioid Safety, Pain Management Activity Restrictions/Additional Instructions: Clear liquid diet for 24 to 48 hours and advance as tolerated. Contact Dr. De La Rosa's office she should try to see you within the next week. 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
[2022-04-25] MEDS: promethazine 25 mg/mL SDV 1 mL IM (10:42)
[2022-04-25 10:44] LABS: Bilirubin Urine 1+ (Negative); Blood Urine Neg (Negative); Glucose Urine UA Norm (Normal); Ketones Urine 1+ (Negative); Nitrate Urine Negative (Negative); Protein Urine Neg (Negative); Urine Appearance Clear (CLEAR); Urine Color Yellow (Yellow); Urobilinogen Urine 1 mg/dL (Negative); pH Urine 7 (5-7)
[2022-04-25 10:45] LABS: Add Urine Microscopic? YES; Leukocyte Esterase Urine Trace (Negative)
[2022-04-25 10:50] LABS: Add Urine Culture? No; Bacteria Urine 1+ /hpf; RBC Urine RARE /hpf (0-2); Squamous Epithelial Cell Urine 15-25 /hpf (0-5); WBC Urine RARE /hpf (0-5)
[2022-04-25] MEDS: iohexol 350 mg/mL 500 mL Btl (per mL) IV (10:56)
[2022-04-25 11:01] LABS: Alanine Aminotransferase 10 U/L (0-33); Albumin Level 3.7 g/dL (3.5-5.2); Alkaline Phosphatase 89 U/L (35-105); Anion Gap 14.6 (5-19); Aspartate Amino Transferase 13 U/L (0-32); Blood Urea Nitrogen 7 mg/dL (6-20); Calcium 9.1 mg/dL (8.5-10.5); Carbon Dioxide 24 mmol/L (22-29); Chloride 100 mmol/L (98-107); Globulin 3.5 g/dL (1.3-4.6); Glucose 79 mg/dL (65-115); Lipase 18 U/L (13-60); Osmolality Calculated 277 mOsm/kg (285-295); Potassium 3.6 mmol/L (3.5-5.1); Sodium 135 mmol/L (136-145); Total Bilirubin 0.3 mg/dL (0.15-1.2); Total Protein 7.2 g/dL (6.6-8.7)
[2022-04-25 11:24] VITALS: BP 120/66; O2SAT 94
[2022-04-25 12:11] VITALS: PULSE 80; O2SAT 94
== END 2022-04-25 12:10 | disposition home or self-care (01) ==
PROVIDERS: Physician Assistant; Emergency Provider Family Medicine; PCP Emergency Medicine
DX: K57.92 Diverticulitis of intestine, part unspecified, without perforation or abscess without bleeding (principal); J44.9 Chronic obstructive pulmonary disease, unspecified; F17.210 Nicotine dependence, cigarettes, uncomplicated
CPT/HCPCS: 74177; 80053; 81001; 83690; 85025; 96372; 99285; J2550; Q9967

== ENCOUNTER 2022-05-02 11:02 | Outpatient (CLI) | payer OTHER, SELFPAY | END 2022-05-02 11:03 | disposition home or self-care (01) | LOC: LAB 11:03 | PROVIDERS: PCP Emergency Medicine; Visit Provider Surgery | DX: R19.7 Diarrhea, unspecified (principal) | CPT/HCPCS: 83630; 87177; 87209; 87493; 87506 ==

== ENCOUNTER 2022-08-15 06:20 | Day surgery (SDC) | payer OTHER, BC, SELFPAY ==
[2022-08-13 13:00] VITALS: BMI 20.3
[2022-08-15 06:50] VITALS: BP 104/87; PULSE 110; RESP 20; TEMP 36.6; O2SAT 94
[2022-08-15] MEDS: sodium chloride 0.9% 1,000 ML 30 ML IV (06:54)
--- NOTE | 2022-08-15 07:15 | ANES.PREANE2 ---
Pre-Anesthetic Assessment Height/Weight: Height 1.6 m Weight 52.163 kg Temp Pulse Resp BP Pulse Ox O2 Del Method 97.8 F 110 H 20 H 104/87 94 08/15/22 06:50 08/15/22 06:50 08/15/22 06:50 08/15/22 06:50 08/15/22 06:50 08/15/22 06:50 Preop Diagnosis: Symptomatic cholelithiasis Operation Date: 08/15/22 07:45 Proposed Procedures p Colonoscopy 59573,K57.50(Not Applicable) - Rachid De La Rosa DO Familial anesthetic complications: None Was Beta Douglas taken within 24 hours: N/A Was Clonidine taken within 24 hours: N/A Last intake: Intake Last Liquid Date 08/14/22 Last Liquid Time 21:00 Last Solid Date 08/13/22 Last Solid Time 18:00 Social Alcohol and Tobacco Exam alert, oriented x 3, clear to auscultation bilaterally and regular rate & rhythm Airway Mallampati: Class II Dentition: false Pulmonary Chronic Obstructive Pulmonary Disease Anesthetic Plan ASA status: 3 Anesthesia: MAC Risk of > 500 ml blood loss (7ml/kg in children): No Medications/Allergies Home Medications Medication Instructions Recorded Confirmed Last Taken Type albuterol sulfate 90 mcg/actuation 2 puff inhalation Q6H PRN 03/04/22 08/13/22 08/15/22 05:50 Rx aerosol inhaler shortness of breath or wheezing #8.5 grams naproxen 500 mg tablet 500 mg PO BID 30 days #60 tabs 05/08/22 08/13/22 08/13/22 Rx conjugated estrogens 0.625 mg/gram See Rx Instructions .Route 06/05/22 08/13/22 08/13/22 Rx vaginal cream (Premarin) .COMPLEX #30 grams Allergies Allergy/AdvReac Type Severity Reaction Status Date / Time codeine Allergy vomit Verified 08/13/22 12:56 Current Medications Generic Name Dose Route Start Last Admin Trade Name Freq PRN Reason Stop Dose Admin Sodium Chloride 1,000 mls @ 30 mls/hr 08/15/22 06:30 08/15/22 06:54 Sodium Chloride 0.9% IV 08/16/22 06:29 30 mls/hr .Q24H SINDI Administration PFSH Anesthesia Medical History Abdominal pain Alcohol abuse, daily use Arthralgia of hands, bilateral Chronic obstructive pulmonary disease Diverticul disease small and large intestine, no perforati or abscess Diverticulitis Pancreatitis Smoking Surgical History History of tubal ligation Family History Denies family history of Anesthesia complication Bleeding disorder Social History Smoking and tobacco status: current every day smoker cigarettes Packs smoked per day: 1.5 Alcohol intake: current Alcohol intake frequency: few times a month History of recent travel: No Female Reproductive History Spontaneous abortions: No Data Anesthesia Cardiac Studies: No Data to Display
--- NOTE | 2022-08-15 07:52 | P.HP_ITS ---
Providers/Chief Complaint Chief Complaint: Diverticulosis of both small and large intestine w History of Present Illness Monica Swan is a 51 year old female here for colonoscopy after diverticulitis Medications/Allergies Home Medications Medication Instructions Recorded Confirmed Last Taken Type albuterol sulfate 90 mcg/actuation 2 puff inhalation Q6H PRN 03/04/22 08/13/22 08/15/22 05:50 Rx aerosol inhaler shortness of breath or wheezing #8.5 grams naproxen 500 mg tablet 500 mg PO BID 30 days #60 tabs 05/08/22 08/13/22 08/13/22 Rx conjugated estrogens 0.625 mg/gram See Rx Instructions .Route 06/05/22 08/13/22 08/13/22 Rx vaginal cream (Premarin) .COMPLEX #30 grams Allergies Allergy/AdvReac Type Severity Reaction Status Date / Time codeine Allergy vomit Verified 08/13/22 12:56 PFSH Acute PFSH: Medical History Abdominal pain Alcohol abuse, daily use Arthralgia of hands, bilateral Chronic obstructive pulmonary disease Diverticul disease small and large intestine, no perforati or abscess Diverticulitis Pancreatitis Smoking Surgical History History of tubal ligation Family History Denies family history of Anesthesia complication Bleeding disorder Social History Smoking and tobacco status: current every day smoker cigarettes Packs smoked per day: 1.5 Alcohol intake: current Alcohol intake frequency: few times a month History of recent travel: No Female Reproductive History: Spontaneous abortions: No Vitals/I&O/Wt Last Vital Signs Temp 97.8 F 08/15/22 06:50 Pulse 110 H 08/15/22 06:50 Resp 20 H 08/15/22 06:50 BP 104/87 08/15/22 06:50 Pulse Ox 94 08/15/22 06:50 O2 Del Method 08/15/22 06:50 Weight last 48 hrs Weight 115 lb A&P Assessment and plan (1) Diverticulitis: Plan Colonoscopy The risks and benefits of the procedure, including bleeding, infection, intestinal perforation requiring surgery, missed lesion were explained to the patient. The patient is understanding of the risks and wishes to proceed. Attestations Medical Necessity Statement*: Home Coding Level of Care Code Acute Code for [facility] Diagnoses Diverticulitis K57.92
[2022-08-15 08:28] VITALS: BP 129/92; PULSE 100; RESP 14; TEMP 36.2; O2SAT 97
[2022-08-15] MEDS: ondansetron 2 mg/ML SDV 2 mL 4 MG IVP (08:34)
[2022-08-15 08:49] VITALS: BP 130/78; PULSE 88; RESP 16; O2SAT 100
--- NOTE | 2022-08-15 14:28 | ANE.PACU2 ---
Inpatient post-anesthesia follow up: Airway intact: Yes Vital signs: Temperature 97.2 F Pulse Rate 88 Respiratory Rate 16 Blood Pressure 130/78 Pulse Oximetry 100 Oxygen Delivery Me thod Room Air Oxygen Flow Rate Fraction of Inspir ed Oxygen Hydration adequate: Yes Nausea and vomiting: No Pain level: 1 Mental status: Baseline
== END 2022-08-15 09:07 | disposition home or self-care (01) ==
PROVIDERS: Visit Provider Surgery
PROC: 0DJD8ZZ Inspection of Lower Intestinal Tract, Via Natural or Artificial Opening Endoscopic (ICD-10-PCS; CPT 45378; principal; 2022-08-15 07:45)
DX: Z09 Encounter for follow-up examination after completed treatment for conditions other than malignant neoplasm (principal); K63.5 Polyp of colon; K56.699 Other intestinal obstruction unspecified as to partial versus complete obstruction; K57.30 Diverticulosis of large intestine without perforation or abscess without bleeding; J44.9 Chronic obstructive pulmonary disease, unspecified; F17.210 Nicotine dependence, cigarettes, uncomplicated; Z87.19 Personal history of other diseases of the digestive system
CPT/HCPCS: 45385; 88305; J2405; J2704; J7030

== ENCOUNTER → 2023-06-07 10:52 | Outpatient (BNVA) | payer OTHER, SELFPAY | PROVIDERS: PCP Family Medicine; Visit Provider Emergency Medicine | DX: B34.9 Viral infection, unspecified (principal); J44.1 Chronic obstructive pulmonary disease with (acute) exacerbation | CPT/HCPCS: 87400 ==

== ENCOUNTER → 2023-08-05 09:23 | Outpatient (BNVA) | payer OTHER, SELFPAY | PROVIDERS: PCP Nurse Practitioner; Visit Provider Nurse Practitioner | DX: R53.83 Other fatigue | CPT/HCPCS: 80053; 82306; 82607 ==

== ENCOUNTER → 2023-11-12 10:30 | Outpatient (BNVA) | payer OTHER, SELFPAY | PROVIDERS: PCP Nurse Practitioner; Visit Provider Nurse Practitioner | DX: J43.1 Panlobular emphysema (principal); J98.11 Atelectasis | CPT/HCPCS: 71046 ==

== ENCOUNTER → 2024-03-07 10:21 | Outpatient (BNVA) | payer OTHER, SELFPAY | PROVIDERS: PCP Nurse Practitioner; Visit Provider Family Medicine | DX: J43.1 Panlobular emphysema (principal); J40 Bronchitis, not specified as acute or chronic; F17.200 Nicotine dependence, unspecified, uncomplicated | CPT/HCPCS: 85025 ==

== ENCOUNTER → 2024-11-06 14:26 | Outpatient (BNVA) | payer MEDICAID, SELFPAY | PROVIDERS: PCP Nurse Practitioner; Visit Provider Nurse Practitioner | DX: J43.1 Panlobular emphysema (principal) | CPT/HCPCS: 71046 ==

== ENCOUNTER → 2024-12-24 14:49 | Outpatient (BNVA) | payer MEDICAID, SELFPAY | PROVIDERS: PCP Nurse Practitioner; Visit Provider Nurse Practitioner | DX: R11.0 Nausea (principal); R63.4 Abnormal weight loss | CPT/HCPCS: 84443; 85025 ==

== ENCOUNTER → 2025-02-22 16:00 | Outpatient (BNVA) | payer MEDICAID, SELFPAY | PROVIDERS: PCP Nurse Practitioner; Visit Provider Internal Medicine | DX: J44.9 Chronic obstructive pulmonary disease, unspecified (principal) | CPT/HCPCS: 36415; 85025 ==

== ENCOUNTER 2025-03-04 08:54 | Outpatient (CLI) | payer MEDICAID, SELFPAY ==
--- NOTE | 2025-03-04 09:00 | CT_ITS ---
WS: [id number] LDCT LUNG CANCER SCREENING TECHNIQUE: Noncontrast CT of the chest with coronal and sagittal reformatted images. CLINICAL INFORMATION: Z12.2 - Encounter for screening for malignant neoplasm of... COMPARISON: None. DLP: 42.00 mGy.cm DIvol: Mean CTDIvol: 0.70 (mGy) All CT scans at [facility] use at least one of these dose optimization techniques: automated exposure control; mA and/or kV adjustment per patient size (includes targeted exams where dose is matched to clinical indication); or iterative reconstruction. FINDINGS: Advanced chronic emphysematous changes with bulla and bleb formation worse in the upper lobes. Subsegmental atelectasis lingula, LEFT lower lobe and RIGHT middle lobe. Aortic calcification. Normal caliber thoracic aorta. Coronary calcification. No mediastinal or hilar lymphadenopathy. No axillary lymphadenopathy. Cholecystectomy clips. Small esophageal hiatal hernia. Mild thoracic kyphosis. Slightly spiculated semisolid opacity LEFT upper lobe measuring 5 mm best seen on the coronal imaging. This may represent a focus of parenchymal scarring. Noncalcified nodule RIGHT upper lobe medially measuring 4 mm. 4 mm nodule RIGHT upper lobe anteriorly subpleural in location. Few tiny scattered micronodules in the upper lobes. 3 mm nodule Superior segment LEFT lower lobe. CT/CT lung screening [id number] IMPRESSION: LUNG-RADS: 2-Benign Appearance or Behavior FOLLOW UP: 12 Month: Continue annual screening with LDCT
== END 2025-03-04 08:55 | disposition home or self-care (01) ==
LOC: RAD 08:54
PROVIDERS: PCP Nurse Practitioner; Visit Provider Nurse Practitioner
DX: Z12.2 Encounter for screening for malignant neoplasm of respiratory organs (principal); F17.200 Nicotine dependence, unspecified, uncomplicated
CPT/HCPCS: 71271

== ENCOUNTER 2025-03-17 08:48 | Outpatient (CLI) | payer MEDICAID, SELFPAY ==
[2025-03-17 09:07] VITALS: PULSE 96; RESP 20; O2SAT 92
== END 2025-03-17 08:49 | disposition home or self-care (01) ==
LOC: RT 08:52
PROVIDERS: PCP Nurse Practitioner; Visit Provider Internal Medicine
DX: J44.9 Chronic obstructive pulmonary disease, unspecified (principal); J98.8 Other specified respiratory disorders
CPT/HCPCS: 94060; 94729

== ENCOUNTER → 2025-05-24 15:33 | Outpatient (BNVA) | payer MEDICAID, SELFPAY | PROVIDERS: PCP Nurse Practitioner; Referring Provider Nurse Practitioner; Visit Provider Internal Medicine | DX: J44.9 Chronic obstructive pulmonary disease, unspecified (principal); J43.9 Emphysema, unspecified | CPT/HCPCS: 36415; 82103 ==